=== PATIENT | female | born 1960 | race Hispanic/Latino ===

== ENCOUNTER → 2017-08-04 | Outpatient (CLI) | payer OTHER ==
[~2017-08-04] MED LIST: ACET1TAB25 PO; ATOR10TA69 PO; CLON0.1T PO; CLON1TAB4 PO; ESOM40CA54 PO; FERS325 PO; FLUO40CA49 PO; IBAN150T8 PO; METO10TA3 PO; MIRT15TA6 PO; POTASSIUM CITRATE PO; PREG50 PO; TOPI50TA24 PO
== END ==
LOC: RAH 11:02
PROVIDERS: ATTEND Internal Medicine
DX: N64.4 Mastodynia (principal)
CPT/HCPCS: 77066

== ENCOUNTER 2017-10-07 20:31 | Emergency (ER) | payer OTHER ==
[~2017-10-07 20:31] MED LIST changes: -CLON1TAB4 PO; +CLON1TAB5 PO
[2017-10-07 21:02] LABS: APPEARANCE,URINE Clear (CLEAR); BILIRUBIN,URINE Negative (NEGATIVE); COLOR,URINE Yellow (YELLOW); GLUCOSE, URINE (UA) Negative (NEGATIVE); KETONES,URINE Negative (NEGATIVE); LEUKOCYTE ESTERASE ,URINE Small (NEGATIVE); NITRATE,URINE Negative (NEGATIVE); OCCULT BLOOD,URINE Negative (NEGATIVE); PROTEIN,URINE POS 1+ (NEGATIVE); UROBILINOGEN,URINE 0.2 mg/dL (0.2-1.0)
[2017-10-07 21:04] LABS: BASOPHILS % (AUTO) 0.5 % (0.0-5.0); EOSINOPHILS % (AUTO) 2.1 % (0.0-8.0); HEMATOCRIT 42.8 % (36-48); MEAN CORPUSCULAR HEMOGLOBIN 30.4 pg (27.0-33.0); MEAN CORPUSCULAR HGB CONC 35.3 g/dL (32.0-36.0); MONOCYTES % (AUTO) 7.8 % (3.0-13.0); NEUTROPHILS % (AUTO) 58.6 % (40.0-77.0); PLATELET COUNT (AUTO) 379 K/uL (130-400); RED BLOOD CELL COUNT(AUTO) 4.97 MIL/uL (4.00-5.50); RED CELL DISTRIBUTION WIDTH 15.5 % (11.0-15.5); WHITE BLOOD COUNT (AUTO) 9.6 K/uL (4.8-10.8)
[2017-10-07 21:08] LABS: RBC,URINE 0-1 /HPF (0-1)
[2017-10-07 21:09] LABS: BACTERIA,URINE Few /HPF (None Seen)
[2017-10-07 21:10] LABS: SQUAMOUS EPITHELIAL CELL,UR Moderate /HPF (0-2)
[2017-10-07 21:14] LABS: CREATININE 1.2 mg/dL (0.5-1.5); POTASSIUM 3.1 mmol/L (3.5-5.1)
[2017-10-07 21:20] LABS: ALBUMIN 3.6 g/dL (3.5-5.0); BILIRUBIN,TOTAL 0.2 mg/dL (0.2-1.0); TOTAL PROTEIN, SERUM 7.2 g/dL (6.0-8.3)
== END 2017-10-07 22:11 | disposition home or self-care (01) ==
LOC: EDH 20:31
DX: N23 Unspecified renal colic (principal); I10 Essential (primary) hypertension; M79.7 Fibromyalgia; G43.909 Migraine, unspecified, not intractable, without status migrainosus; E78.5 Hyperlipidemia, unspecified; H40.9 Unspecified glaucoma; M81.0 Age-related osteoporosis without current pathological fracture; Z88.1 Allergy status to other antibiotic agents; Z88.6 Allergy status to analgesic agent; Z87.442 Personal history of urinary calculi; Z90.710 Acquired absence of both cervix and uterus
CPT/HCPCS: 36415; 80053; 81001; 83690; 85025

== ENCOUNTER → 2017-10-22 | Outpatient (CLI) | payer OTHER | END | disposition home or self-care (01) | LOC: RAH 09:17 | PROVIDERS: ATTEND Internal Medicine | DX: R10.13 Epigastric pain (principal); R11.2 Nausea with vomiting, unspecified | CPT/HCPCS: 76700 ==

== ENCOUNTER 2017-11-28 16:13 | Emergency (ER) | payer OTHER ==
[2017-11-28] MEDS ORDERED: DIAZEPAM 5 MG TABLET ONE (16:55)
[2017-11-28] MEDS ORDERED: ACETAMINOPHEN EXTRA STRENGTH 500 MG TABLET ONE (16:55)
[2017-11-28] MEDS ORDERED: LIDOCAINE 5% TOPICAL PATCH TP ONE (16:55)
== END 2017-11-28 18:27 | disposition home or self-care (01) ==
LOC: EDH 16:13
DX: M54.5 Low back pain (principal); G89.29 Other chronic pain; F41.9 Anxiety disorder, unspecified; F32.9 Major depressive disorder, single episode, unspecified; M79.7 Fibromyalgia; E78.5 Hyperlipidemia, unspecified; I10 Essential (primary) hypertension; G43.909 Migraine, unspecified, not intractable, without status migrainosus; M81.0 Age-related osteoporosis without current pathological fracture; H40.9 Unspecified glaucoma; Z90.710 Acquired absence of both cervix and uterus; Z87.442 Personal history of urinary calculi; Z98.890 Other specified postprocedural states

== ENCOUNTER → 2017-12-17 | Outpatient (CLI) | payer OTHER | END | disposition home or self-care (01) | LOC: RAH 14:04 | PROVIDERS: ATTEND Urology | DX: K57.90 Diverticulosis of intestine, part unspecified, without perforation or abscess without bleeding (principal); K42.9 Umbilical hernia without obstruction or gangrene | CPT/HCPCS: 74176 ==

== ENCOUNTER → 2018-02-26 | Outpatient (CLI) | payer OTHER ==
[~2018-02-26] MED LIST changes: +IOPAMIDOL-370 100 ML VIAL IV ONE
== END | disposition home or self-care (01) ==
LOC: OIH 09:56
PROVIDERS: ATTEND Internal Medicine Gastroenterology
DX: R10.84 Generalized abdominal pain (principal); Z98.890 Other specified postprocedural states
CPT/HCPCS: 74178; Q9967

== ENCOUNTER → 2018-11-19 | Outpatient (CLI) | payer OTHER ==
[~2018-11-19] MED LIST changes: +CLON1TAB12 PO; -CLON1TAB5 PO; -IOPAMIDOL-370 100 ML VIAL IV ONE
== END | disposition home or self-care (01) ==
LOC: RAH 10:53
PROVIDERS: ATTEND Internal Medicine
DX: Z12.31 Encounter for screening mammogram for malignant neoplasm of breast (principal)
CPT/HCPCS: 77067

== ENCOUNTER → 2019-07-13 | Outpatient (CLI) | payer OTHER ==
[~2019-07-13] MED LIST changes: +IBAN150T21 PO; -IBAN150T8 PO
== END | disposition home or self-care (01) ==
LOC: RAH 13:02
PROVIDERS: ATTEND Internal Medicine
DX: M19.072 Primary osteoarthritis, left ankle and foot (principal); M19.071 Primary osteoarthritis, right ankle and foot; M19.042 Primary osteoarthritis, left hand; M19.041 Primary osteoarthritis, right hand
CPT/HCPCS: 73130; 73630

== ENCOUNTER → 2019-08-17 | Outpatient (CLI) | payer OTHER | END | disposition home or self-care (01) | LOC: RAH 12:41 | PROVIDERS: ATTEND Internal Medicine | DX: M17.12 Unilateral primary osteoarthritis, left knee (principal); M17.11 Unilateral primary osteoarthritis, right knee | CPT/HCPCS: 73562 ==

== ENCOUNTER → 2019-09-01 | Outpatient (CLI) | payer OTHER | END | disposition home or self-care (01) | LOC: RAH 13:34 | PROVIDERS: ATTEND Urology | DX: N20.0 Calculus of kidney (principal) | CPT/HCPCS: 74176 ==

== ENCOUNTER → 2019-09-23 | Outpatient (CLI) | payer OTHER ==
[2019-09-23 09:47] LABS: BASOPHILS % (AUTO) 0.8 % (0.0-5.0); EOSINOPHILS % (AUTO) 2.6 % (0.0-8.0); HEMATOCRIT 43.1 % (36-48); LYMPHOCYTES % (AUTO) 27.1 % (21.0-51.0); MEAN CORPUSCULAR HEMOGLOBIN 30.9 pg (27.0-33.0); MEAN CORPUSCULAR HGB CONC 33.4 g/dL (32.0-36.0); MEAN CORPUSCULAR VOLUME 92.5 fL (79-99); MONOCYTES % (AUTO) 7.6 % (3.0-13.0); NEUTROPHILS % (AUTO) 61.6 % (40.0-77.0); PLATELET COUNT (AUTO) 350 K/uL (130-400); RED BLOOD CELL COUNT(AUTO) 4.66 MIL/uL (4.00-5.50); RED CELL DISTRIBUTION WIDTH 13.1 % (11.0-15.5); WHITE BLOOD COUNT (AUTO) 7.6 K/uL (4.8-10.8)
[2019-09-23 09:54] LABS: CREATININE 0.9 mg/dL (0.5-1.5); POTASSIUM 3.9 mmol/L (3.5-5.1)
== END | disposition home or self-care (01) ==
LOC: LAB 09:12
PROVIDERS: ATTEND Urology
DX: N20.0 Calculus of kidney (principal)
CPT/HCPCS: 36415; 80048; 85025

== ENCOUNTER → 2019-09-26 | Outpatient (CLI) | payer OTHER ==
[~2019-09-26] MED LIST changes: +IOHEXOL-350 75 ML VIAL IV ONE
== END | disposition home or self-care (01) ==
LOC: RAH 08:08
PROVIDERS: ATTEND Urology
DX: K76.0 Fatty (change of) liver, not elsewhere classified (principal); K57.30 Diverticulosis of large intestine without perforation or abscess without bleeding; N20.0 Calculus of kidney; J98.11 Atelectasis; Z90.710 Acquired absence of both cervix and uterus
CPT/HCPCS: 74178; Q9967

== ENCOUNTER → 2019-11-22 | Outpatient (CLI) | payer OTHER ==
[~2019-11-22] MED LIST changes: -IOHEXOL-350 75 ML VIAL IV ONE
== END | disposition home or self-care (01) ==
LOC: RAH 11:14
PROVIDERS: ATTEND Internal Medicine
DX: Z12.31 Encounter for screening mammogram for malignant neoplasm of breast (principal)
CPT/HCPCS: 77067

== ENCOUNTER → 2020-10-09 | Outpatient (CLI) | payer OTHER | END | disposition home or self-care (01) | LOC: RAH 12:52 | PROVIDERS: ATTEND Urology | DX: N20.0 Calculus of kidney (principal); K57.30 Diverticulosis of large intestine without perforation or abscess without bleeding | CPT/HCPCS: 74176 ==

== ENCOUNTER → 2021-03-19 | Outpatient (CLI) | payer OTHER ==
[~2021-03-19] MED LIST changes: +MIRT-22 PO; -MIRT15TA6 PO
== END | disposition home or self-care (01) ==
LOC: RAH 11:10
PROVIDERS: ATTEND Internal Medicine
DX: E04.2 Nontoxic multinodular goiter (principal)
CPT/HCPCS: 76536

== ENCOUNTER → 2021-03-22 | Outpatient (CLI) | payer OTHER | END | disposition home or self-care (01) | LOC: RAH 14:09 | PROVIDERS: ATTEND Internal Medicine | DX: Z12.31 Encounter for screening mammogram for malignant neoplasm of breast (principal); N20.0 Calculus of kidney | CPT/HCPCS: 74018; 76100; 77067 ==

== ENCOUNTER → 2021-04-24 | Outpatient (CLI) | payer OTHER ==
[~2021-04-24] MED LIST changes: +KETO10 PO; +TAMS-1 PO
[2021-04-24 08:24] LABS: INR 0.96 (0.85-1.15); PROTHROMBIN TIME 10.5 SEC (9.6-11.6)
[2021-04-24 08:25] LABS: PARTIAL THROMBOPLASTIN TIME 29.1 SEC (26.3-35.5)
== END | disposition home or self-care (01) ==
LOC: RAH 07:33
PROVIDERS: ATTEND Internal Medicine
DX: E04.1 Nontoxic single thyroid nodule (principal); M81.0 Age-related osteoporosis without current pathological fracture; F41.9 Anxiety disorder, unspecified; F32.9 Major depressive disorder, single episode, unspecified; I10 Essential (primary) hypertension; E78.5 Hyperlipidemia, unspecified; M79.7 Fibromyalgia; Z90.710 Acquired absence of both cervix and uterus; Z90.49 Acquired absence of other specified parts of digestive tract; Z98.890 Other specified postprocedural states; Z79.01 Long term (current) use of anticoagulants
CPT/HCPCS: 10005; 36415; 76942; 85610; 85730; 88173; 88305

== ENCOUNTER 2021-05-06 14:32 | Emergency (ER) | payer OTHER ==
[~2021-05-06] VITALS: Ht 152.4 cm; Wt 64.0 kg
[~2021-05-06 14:32] MED LIST changes: -KETO10 PO; -TAMS-1 PO
[2021-05-06] MEDS ORDERED: KETOROLAC 30MG VIAL (30MG/ML) IV ONE (16:00)
[2021-05-06] MEDS ORDERED: 0.9%NACL 1000ML 1,000 ML IV ONE (16:00)
[2021-05-06] MEDS ORDERED: ONDANSETRON 4MG INJ IVP ONE (16:00)
[2021-05-06 16:12] LABS: BASOPHILS % (AUTO) 0.5 % (0.0-5.0); EOSINOPHILS % (AUTO) 0.7 % (0.0-8.0); HEMATOCRIT 46.6 % (36-48); LYMPHOCYTES % (AUTO) 13.5 % (21.0-51.0); MEAN CORPUSCULAR HEMOGLOBIN 30.7 pg (27.0-33.0); MEAN CORPUSCULAR VOLUME 92.8 fL (79-99); MONOCYTES % (AUTO) 2.5 % (3.0-13.0); NEUTROPHILS % (AUTO) 82.3 % (40.0-77.0); PLATELET COUNT (AUTO) 318 K/uL (130-400); RED BLOOD CELL COUNT(AUTO) 5.02 MIL/uL (4.00-5.50); RED CELL DISTRIBUTION WIDTH 14.5 % (11.0-15.5); WHITE BLOOD COUNT (AUTO) 8.4 K/uL (4.8-10.8)
[2021-05-06 16:29] LABS: APPEARANCE,URINE Cloudy (CLEAR); BILIRUBIN,URINE Negative (NEGATIVE); COLOR,URINE Yellow (YELLOW); GLUCOSE, URINE (UA) Negative (NEGATIVE); KETONES,URINE Negative (NEGATIVE); LEUKOCYTE ESTERASE ,URINE Negative (NEGATIVE); NITRATE,URINE Negative (NEGATIVE); OCCULT BLOOD,URINE Negative (NEGATIVE); PH,URINE 6.5 (5.0-8.0); PROTEIN,URINE Negative (NEGATIVE)
[2021-05-06 16:32] LABS: CREATININE 0.9 mg/dL (0.5-1.5); POTASSIUM 4.1 mmol/L (3.5-5.1)
[2021-05-06 16:39] LABS: ALBUMIN 4.5 g/dL (3.5-5.0); BILIRUBIN,TOTAL 0.3 mg/dL (0.2-1.0); CRP QUANTITATIVE 2.9 mg/L (0.00-9.0); TOTAL PROTEIN, SERUM 8.8 g/dL (6.0-8.3)
[2021-05-06 16:48] LABS: BACTERIA,URINE Few /HPF (None Seen); RBC,URINE 0-1 /HPF (0-1); SQUAMOUS EPITHELIAL CELL,UR Few /HPF (0-2); WBC,URINE 0-1 /HPF (0-1)
[2021-05-06 16:49] LABS: AMORPHOUS SEDIMENT,UR Few /LPF (None Seen); MUCUS,URINE Few LPF (None Seen)
[2021-05-06] MEDS ORDERED: TAMS-1 PO (17:18)
[2021-05-06] MEDS ORDERED: KETO10 PO (17:18)
[2021-05-06 17:26] VITALS: BP 161/98
[2021-05-06] MEDS ORDERED: TAMSULOSIN HCL 0.4 MG CAP.ER.24H PO SCH (17:30)
== END 2021-05-06 17:34 | disposition home or self-care (01) ==
LOC: EDH 14:32
DX: N20.0 Calculus of kidney (principal); E78.00 Pure hypercholesterolemia, unspecified; I10 Essential (primary) hypertension; M19.90 Unspecified osteoarthritis, unspecified site; Z79.1 Long term (current) use of non-steroidal anti-inflammatories (NSAID); Z79.899 Other long term (current) drug therapy; Z88.1 Allergy status to other antibiotic agents
CPT/HCPCS: 36415; 74176; 80053; 81001; 84484; 85025; 86140; 96361; 96374; 96375; 99284; J1885; J2405; J7030

== ENCOUNTER → 2021-05-20 | Outpatient (CLI) | payer OTHER ==
[~2021-05-20] MED LIST changes: +KETO10 PO; +TAMS-1 PO
[2021-05-20 13:34] LABS: BASOPHILS % (AUTO) 0.7 % (0.0-5.0); HEMATOCRIT 47.5 % (36-48); LYMPHOCYTES % (AUTO) 25.4 % (21.0-51.0); MEAN CORPUSCULAR HEMOGLOBIN 31.4 pg (27.0-33.0); MEAN CORPUSCULAR HGB CONC 32.8 g/dL (32.0-36.0); MEAN CORPUSCULAR VOLUME 95.6 fL (79-99); MONOCYTES % (AUTO) 6.4 % (3.0-13.0); NEUTROPHILS % (AUTO) 66.2 % (40.0-77.0); PLATELET COUNT (AUTO) 382 K/uL (130-400); RED BLOOD CELL COUNT(AUTO) 4.97 MIL/uL (4.00-5.50); RED CELL DISTRIBUTION WIDTH 14.6 % (11.0-15.5); WHITE BLOOD COUNT (AUTO) 10.4 K/uL (4.8-10.8)
[2021-05-20 13:39] LABS: CREATININE 0.9 mg/dL (0.5-1.5); POTASSIUM 3.9 mmol/L (3.5-5.1)
== END | disposition home or self-care (01) ==
LOC: LAB 11:58
PROVIDERS: ATTEND Internal Medicine
DX: N20.0 Calculus of kidney (principal)
CPT/HCPCS: 36415; 80048; 85025

== ENCOUNTER → 2021-05-23 | Outpatient (CLI) | payer OTHER ==
[~2021-05-23] MED LIST changes: +IOHEXOL 350 MG/ML 100ML INFUS..BTL IV ONE
== END | disposition home or self-care (01) ==
LOC: RAH 09:53
PROVIDERS: ATTEND Internal Medicine Cardiovascular Disease
DX: K82.8 Other specified diseases of gallbladder (principal); I77.1 Stricture of artery; I70.8 Atherosclerosis of other arteries; R76.0 Raised antibody titer; M47.815 Spondylosis without myelopathy or radiculopathy, thoracolumbar region
CPT/HCPCS: 74174; Q9967

== ENCOUNTER 2021-05-26 23:57 | Emergency (ER) | payer OTHER ==
[~2021-05-26] VITALS: Ht 152.4 cm; Wt 62.1 kg
[~2021-05-26 23:57] MED LIST changes: -IOHEXOL 350 MG/ML 100ML INFUS..BTL IV ONE
[2021-05-27] MEDS: ORPHENADRINE CITRATE 30 MG/ML ML ONE (00:51)
[2021-05-27] MEDS: KETOROLAC 60 MG VIAL (30MG/ML) ONE (00:51)
[2021-05-27] MEDS: KETOROLAC 60 MG VIAL (30MG/ML) IM ONE (00:56)
[2021-05-27] MEDS: ORPHENADRINE CITRATE 30 MG/ML ML IM ONE (00:56)
[2021-05-27] MEDS ORDERED: ORPH-43 PO (01:14)
[2021-05-27] MEDS ORDERED: LIDOP TP (01:14)
[2021-05-27 01:19] VITALS: BP 127/84
== END 2021-05-27 01:26 | disposition home or self-care (01) ==
LOC: EDH 23:57
DX: M62.830 Muscle spasm of back (principal); E78.5 Hyperlipidemia, unspecified; F41.9 Anxiety disorder, unspecified; M19.90 Unspecified osteoarthritis, unspecified site; F32.A Depression, unspecified; M79.7 Fibromyalgia; Z88.1 Allergy status to other antibiotic agents; Z79.1 Long term (current) use of non-steroidal anti-inflammatories (NSAID); Z79.899 Other long term (current) drug therapy; Z87.442 Personal history of urinary calculi
CPT/HCPCS: 96372 ×2; 99284; J1885; J2360

== ENCOUNTER 2021-06-13 23:52 | Emergency (ER) | payer OTHER ==
[~2021-06-13 23:52] MED LIST changes: +LIDOP TP; +ORPH-43 PO
[2021-06-14 00:36] LABS: APPEARANCE,URINE Clear (CLEAR); BILIRUBIN,URINE Negative (NEGATIVE); COLOR,URINE Yellow (YELLOW); GLUCOSE, URINE (UA) Negative (NEGATIVE); KETONES,URINE Negative (NEGATIVE); LEUKOCYTE ESTERASE ,URINE Negative (NEGATIVE); NITRATE,URINE Negative (NEGATIVE); OCCULT BLOOD,URINE Negative (NEGATIVE); PH,URINE 5.5 (5.0-8.0); PROTEIN,URINE Negative (NEGATIVE)
[2021-06-14] MEDS ORDERED: KETOROLAC 15MG/ML VIAL (15MG/ML) ONE (00:58)
[2021-06-14] MEDS ORDERED: 0.9% NACL 500ML IV.SOLN 500 ML IV ONE (01:00)
[2021-06-14] MEDS ORDERED: KETOROLAC 15MG/ML VIAL (15MG/ML) IV ONE (01:00)
[2021-06-14 01:05] LABS: BASOPHILS % (AUTO) 0.8 % (0.0-5.0); EOSINOPHILS % (AUTO) 1.9 % (0.0-8.0); HEMATOCRIT 40.2 % (36-48); LYMPHOCYTES % (AUTO) 33.3 % (21.0-51.0); MEAN CORPUSCULAR HEMOGLOBIN 31.4 pg (27.0-33.0); MEAN CORPUSCULAR HGB CONC 33.1 g/dL (32.0-36.0); MEAN CORPUSCULAR VOLUME 94.8 fL (79-99); MONOCYTES % (AUTO) 9.4 % (3.0-13.0); PLATELET COUNT (AUTO) 262 K/uL (130-400); RED BLOOD CELL COUNT(AUTO) 4.24 MIL/uL (4.00-5.50); RED CELL DISTRIBUTION WIDTH 14.2 % (11.0-15.5)
[2021-06-14 01:13] LABS: CREATININE 0.9 mg/dL (0.5-1.5); POTASSIUM 3.5 mmol/L (3.5-5.1)
[2021-06-14 01:17] LABS: ALBUMIN 3.8 g/dL (3.5-5.0); BILIRUBIN,TOTAL 0.2 mg/dL (0.2-1.0); TOTAL PROTEIN, SERUM 6.9 g/dL (6.0-8.3)
[2021-06-14] MEDS ORDERED: KETO10TA2 PO (01:46)
[2021-06-14 01:57] VITALS: BP 128/76
== END 2021-06-14 01:58 | disposition home or self-care (01) ==
LOC: EDH 23:52
DX: R10.9 Unspecified abdominal pain (principal); G89.29 Other chronic pain; E78.00 Pure hypercholesterolemia, unspecified; E86.0 Dehydration; F32.A Depression, unspecified; F41.9 Anxiety disorder, unspecified; I10 Essential (primary) hypertension; M79.7 Fibromyalgia; Z79.1 Long term (current) use of non-steroidal anti-inflammatories (NSAID); Z79.899 Other long term (current) drug therapy; Z88.1 Allergy status to other antibiotic agents
CPT/HCPCS: 36415; 80053; 81003; 85025; 96360; 96361; 96372; 96374; J1885; J7040

== ENCOUNTER → 2021-06-19 | Outpatient (CLI) | payer OTHER ==
[~2021-06-19] MED LIST changes: +FUROSEMIDE 20MG VIAL ONE; +KETO10TA2 PO
== END | disposition home or self-care (01) ==
LOC: RAH 13:40
PROVIDERS: ATTEND Urology
DX: R10.84 Generalized abdominal pain (principal)
CPT/HCPCS: 78708; A9562; J1940

== ENCOUNTER → 2021-07-05 | Outpatient (CLI) | payer OTHER ==
[~2021-07-05] MED LIST changes: -FUROSEMIDE 20MG VIAL ONE; +REGADENOSON 0.4 MG/5 ML PF SYG IVP SCH
== END | disposition home or self-care (01) ==
LOC: SHCH 09:12
PROVIDERS: ATTEND Internal Medicine Cardiovascular Disease
DX: I70.1 Atherosclerosis of renal artery (principal); I10 Essential (primary) hypertension; I25.10 Atherosclerotic heart disease of native coronary artery without angina pectoris; E78.5 Hyperlipidemia, unspecified; E78.00 Pure hypercholesterolemia, unspecified; M19.90 Unspecified osteoarthritis, unspecified site; F41.9 Anxiety disorder, unspecified; F32.A Depression, unspecified; Z79.1 Long term (current) use of non-steroidal anti-inflammatories (NSAID); Z79.899 Other long term (current) drug therapy
CPT/HCPCS: 78452; 93017; 96374; A9500 ×2; J2785

== ENCOUNTER 2021-12-31 06:05 | Day surgery (SDC) | payer OTHER ==
[2021-12-26 09:14] LABS: BASOPHILS % (AUTO) 0.9 % (0.0-5.0); EOSINOPHILS % (AUTO) 2.9 % (0.0-8.0); HEMATOCRIT 39.9 % (36-48); MEAN CORPUSCULAR HEMOGLOBIN 30.9 pg (27.0-33.0); MEAN CORPUSCULAR HGB CONC 33.1 g/dL (32.0-36.0); MEAN CORPUSCULAR VOLUME 93.4 fL (79-99); NEUTROPHILS % (AUTO) 46.7 % (40.0-77.0); PLATELET COUNT (AUTO) 380 K/uL (130-400); RED BLOOD CELL COUNT(AUTO) 4.27 MIL/uL (4.00-5.50); RED CELL DISTRIBUTION WIDTH 13.2 % (11.0-15.5); WHITE BLOOD COUNT (AUTO) 6.5 K/uL (4.8-10.8)
[2021-12-26 09:22] LABS: CREATININE 0.9 mg/dL (0.5-1.5); POTASSIUM 3.8 mmol/L (3.5-5.1)
[2021-12-26 09:38] LABS: INR 0.93 (0.85-1.15)
[2021-12-26 09:40] LABS: PARTIAL THROMBOPLASTIN TIME 27.6 SEC (26.3-35.5)
[2021-12-26 09:59] LABS: B-TYPE NATRIURETIC PEPTIDE 6 pg/mL (0-100)
[2021-12-26 10:00] LABS: APPEARANCE,URINE Clear (CLEAR); BILIRUBIN,URINE Negative (NEGATIVE); COLOR,URINE Yellow (YELLOW); GLUCOSE, URINE (UA) Negative (NEGATIVE); KETONES,URINE Negative (NEGATIVE); LEUKOCYTE ESTERASE ,URINE Negative (NEGATIVE); NITRATE,URINE Negative (NEGATIVE); OCCULT BLOOD,URINE Negative (NEGATIVE); PROTEIN,URINE Negative (NEGATIVE); UROBILINOGEN,URINE 0.2 mg/dL (0.2-1.0)
[2021-12-26 15:04] VITALS: BP 139/94
[2021-12-31] VITALS (12 sets, daily range): BP systolic 91–125; BP diastolic 53–78
[~2021-12-31] VITALS: Ht 154.9 cm; Wt 58.2 kg
[~2021-12-31 06:05] MED LIST changes: +0.9% NACL 500ML IV.SOLN 500 ML IV SCH; -ACET1TAB25 PO; +AEC81 PO; -ATOR10TA69 PO; +ATOR40TA71 PO; +BREX1TAB PO; +BUSP5TAB3 PO; +CELE200C PO; +CHOL500050 PO; -CLON0.1T PO; -CLON1TAB12 PO; +DIAZ5TAB4 PO; +ELUX100T PO; +ESOM20CA39 PO; -ESOM40CA54 PO; -FERS325 PO; -FLUO40CA49 PO; +FLUO40CA7 PO; +GABA-529 PO; -IBAN150T21 PO; -KETO10 PO; -KETO10TA2 PO; +LATA7.5D OP; +LEVO88CA4 PO; -LIDOP TP; +METO-391 PO; -METO10TA3 PO; +MIRA50TA PO; -MIRT-22 PO; -ORPH-43 PO; -POTASSIUM CITRATE PO; -PREG50 PO; -REGADENOSON 0.4 MG/5 ML PF SYG IVP SCH; +SUCR1TAB2 PO; -TAMS-1 PO; +TIZA4CAP8 PO; +TOPI100T31 PO; -TOPI50TA24 PO; +TRAM-355 PO
[2021-12-31] MEDS ORDERED: 0.9%NACL 1000ML 1,000 ML IV ONE (06:25)
[2021-12-31] MEDS ORDERED: SODIUM BICARB 50MEQ 50ML VIAL 50 ML ONE (07:16)
[2021-12-31] MEDS ORDERED: IOHEXOL 350 MG/ML 100ML INFUS..BTL IV ONE (07:16)
[2021-12-31] MEDS ORDERED: LIDOCAINE HCL 400MG/20ML VIAL ONE (07:17)
[2021-12-31] MEDS ORDERED: MEPERIDINE-PF 25 MG/ML SYG ONE (07:17)
[2021-12-31] MEDS ORDERED: MIDAZOLAM HCL 1 MG/ML 2ML VIAL ONE (07:17)
[2021-12-31] MEDS ORDERED: ATROPINE 1MG SYG IVP ONE (07:38)
[2021-12-31] MEDS ORDERED: NITROGLYCERIN 50MG VIAL ONE (07:54)
[2021-12-31] MEDS ORDERED: 0.9%NACL 1000ML 1,000 ML IV SCH ×2 (08:00→09:00)
[2021-12-31] MEDS ORDERED: HEPARIN 10,000 UNIT/10ML (1,000 UNIT/ML) VIAL ONE (08:03)
[2021-12-31] MEDS ORDERED: ASPIRIN 325MG EC TAB PO ONE (08:16)
[2021-12-31] MEDS ORDERED: CLOPIDOGREL 300MG TAB ONE (08:16)
[2021-12-31] MEDS ORDERED: CLOP75TA14 PO (11:19)
[2021-12-31] MEDS ORDERED: PANT40TA PO (11:19)
[2021-12-31] MEDS ORDERED: AMLO2.5T4 PO (11:20)
[2021-12-31] MEDS ORDERED: METO25TA3 PO (11:21)
== END 2021-12-31 13:15 | disposition home or self-care (01) ==
LOC: DAH 06:05
PROVIDERS: ATTEND Internal Medicine Cardiovascular Disease
DX: I25.111 Atherosclerotic heart disease of native coronary artery with angina pectoris with documented spasm (principal); I16.1 Hypertensive emergency; I70.1 Atherosclerosis of renal artery; I15.0 Renovascular hypertension; K21.9 Gastro-esophageal reflux disease without esophagitis; Z79.01 Long term (current) use of anticoagulants; Z79.899 Other long term (current) drug therapy; Z79.82 Long term (current) use of aspirin; Z79.890 Hormone replacement therapy; Z98.890 Other specified postprocedural states
CPT/HCPCS: 80048; 83880; 85025; 85610; 85730; 81003; 36415; 71045; 93005; 37236; 93458; 36252; C1769 ×2; C1894 ×2; C1760; C1887; C1876; Q9965; J3490 ×3; J7030; J0461; J1644 ×2; J2250; J2175; Q9967; 99156; 99157

== ENCOUNTER → 2022-07-09 | Outpatient (CLI) | payer OTHER ==
[~2022-07-09] MED LIST changes: -0.9% NACL 500ML IV.SOLN 500 ML IV SCH; +AMLO2.5T4 PO; +CLOP-31 PO; -ESOM20CA39 PO; -METO-391 PO; +METO25TA3 PO; +PANT40TA PO
== END | disposition home or self-care (01) ==
LOC: RAH 10:53
PROVIDERS: ATTEND Internal Medicine
DX: Z12.31 Encounter for screening mammogram for malignant neoplasm of breast (principal)
CPT/HCPCS: 77067

== ENCOUNTER → 2022-07-29 | Outpatient (CLI) | payer OTHER | END | disposition home or self-care (01) | LOC: RAH 16:43 | PROVIDERS: ATTEND Internal Medicine | DX: M79.672 Pain in left foot (principal); M54.50 Low back pain, unspecified; M54.16 Radiculopathy, lumbar region | CPT/HCPCS: 72100; 73630 ==

== ENCOUNTER 2023-02-20 12:12 | Emergency (ER) | payer OTHER ==
[~2023-02-20] VITALS: Ht 154.9 cm; Wt 58.1 kg
[~2023-02-20 12:12] MED LIST changes: -NEOM28.36 TP
[2023-02-20 12:33] VITALS: BP 176/88; PULSE 115; RESP 16; O2SAT 98
[2023-02-20] MEDS ORDERED: NEOM28.36 TP (14:07)
[2023-03-01] MEDS ORDERED: TOPI100T37 PO (23:46)
[2023-03-01] MEDS ORDERED: LOSA25TA41 PO (23:46)
[2023-03-01] MEDS ORDERED: GABA-529 (23:46)
[2023-03-01] MEDS ORDERED: FENO145T26 PO (23:46)
[2023-03-01] MEDS ORDERED: PANT40TA54 PO (23:46)
[2023-03-01] MEDS ORDERED: TIZA-194 PO (23:46)
[2023-03-01] MEDS ORDERED: BUSP10TA3 PO (23:46)
[2023-03-01] MEDS ORDERED: TEMA15CA PO (23:46)
[2023-03-01] MEDS ORDERED: CELE-84 PO (23:46)
[2023-03-01] MEDS ORDERED: TIZA-211 PO (23:46)
[2023-03-01] MEDS ORDERED: RANO500T6 PO (23:46)
[2023-03-01] MEDS ORDERED: METO-409 PO (23:46)
[2023-03-01] MEDS ORDERED: NITR0.4T50 SL (23:46)
[2023-03-01] MEDS ORDERED: AMLO-258 PO (23:46)
[2023-03-01] MEDS ORDERED: FLUO40CA49 PO (23:46)
[2023-03-01] MEDS ORDERED: DICL75TA5 PO (23:46)
[2023-03-01] MEDS ORDERED: TRAM-355 PO (23:47)
[2023-03-01] MEDS ORDERED: DOCU100T9 PO (23:53)
[2023-03-01] MEDS ORDERED: DIAZ10I IJ (23:53)
[2023-03-01] MEDS ORDERED: MIRA50TA PO (23:53)
[2023-03-01] MEDS ORDERED: ELUX100T PO (23:53)
[2023-03-01] MEDS ORDERED: NITR100C9 PO (23:53)
[2023-03-01] MEDS ORDERED: DICY20TA3 PO (23:53)
[2023-03-01] MEDS ORDERED: BREX1TAB PO (23:53)
== END 2023-02-20 14:31 | disposition home or self-care (01) ==
LOC: EDH 12:12
DX: S80.02XA Contusion of left knee, initial encounter (principal); S80.01XA Contusion of right knee, initial encounter; E78.00 Pure hypercholesterolemia, unspecified; I10 Essential (primary) hypertension; Z79.02 Long term (current) use of antithrombotics/antiplatelets; Z79.1 Long term (current) use of non-steroidal anti-inflammatories (NSAID); Z79.82 Long term (current) use of aspirin; Z79.890 Hormone replacement therapy; Z79.899 Other long term (current) drug therapy; Z88.1 Allergy status to other antibiotic agents; W01.0XXA Fall on same level from slipping, tripping and stumbling without subsequent striking against object, initial encounter; Y93.89 Activity, other specified; Y92.89 Other specified places as the place of occurrence of the external cause; Y99.8 Other external cause status
CPT/HCPCS: 71046

== ENCOUNTER → 2023-02-20 | Outpatient (CLI) | payer OTHER ==
[~2023-02-20] MED LIST changes: +NEOM28.36 TP
== END | disposition home or self-care (01) ==
LOC: RAH 11:28
PROVIDERS: ATTEND Internal Medicine
DX: Z01.818 Encounter for other preprocedural examination (principal)
CPT/HCPCS: 71046

== ENCOUNTER 2023-03-31 05:48 | Day surgery (SDC) | payer OTHER ==
[2023-03-30 14:27] VITALS: BP 149/97; PULSE 92; RESP 18
[2023-03-31] VITALS (9 sets, daily range): BP systolic 127–152; BP diastolic 77–97; PULSE 78–87; RESP 14–16
[~2023-03-31] VITALS: Ht 154.9 cm; Wt 55.2 kg
[~2023-03-31 05:48] MED LIST changes: +AMLO-258 PO; -AMLO2.5T4 PO; +ATOR40TA69 PO; -ATOR40TA71 PO; +BUSP10TA3 PO; -BUSP5TAB3 PO; +CELE-125 PO; -CELE200C PO; -CHOL500050 PO; -CLOP-31 PO; +DICL75TA5 PO; +DICY20TA3 PO; +DIPH1TAB PO; +FENO145T26 PO; +FLUO40CA49 PO; -FLUO40CA7 PO; +GABA-529; -GABA-529 PO; +LATA2.5D14 OP; -LATA7.5D OP; +METO-409 PO; -METO25TA3 PO; +METO5 PO; -MIRA50TA PO; +NITR0.4T50 SL; -PANT40TA PO; +PANT40TA54 PO; +RANO500T6 PO; +TEMA15CA PO; +TIZA-211 PO; -TIZA4CAP8 PO; -TOPI100T31 PO; +TOPI100T37 PO
[2023-03-31] MEDS ORDERED: LIDOCAINE PF 100MG/5ML (2%) SYRINGE 5ML ONE (07:52)
[2023-03-31] MEDS ORDERED: PROPOFOL 10 MG/ML 20ML VIAL IV ONE ×2 (07:52→08:05)
== END 2023-03-31 09:10 | disposition home or self-care (01) ==
LOC: ENDO 05:48 → DAH 05:48 → ENDO 09:10
PROVIDERS: ATTEND Internal Medicine
DX: R93.5 Abnormal findings on diagnostic imaging of other abdominal regions, including retroperitoneum (principal); R93.2 Abnormal findings on diagnostic imaging of liver and biliary tract; K86.2 Cyst of pancreas; K29.70 Gastritis, unspecified, without bleeding; R10.9 Unspecified abdominal pain; K57.30 Diverticulosis of large intestine without perforation or abscess without bleeding; K64.9 Unspecified hemorrhoids; K44.9 Diaphragmatic hernia without obstruction or gangrene; K58.0 Irritable bowel syndrome with diarrhea; I10 Essential (primary) hypertension; K21.9 Gastro-esophageal reflux disease without esophagitis; F41.9 Anxiety disorder, unspecified; F32.A Depression, unspecified; M81.0 Age-related osteoporosis without current pathological fracture; E78.5 Hyperlipidemia, unspecified; M19.90 Unspecified osteoarthritis, unspecified site; Z86.010 Personal history of colon polyps; Z90.710 Acquired absence of both cervix and uterus; Z98.890 Other specified postprocedural states; Z72.89 Other problems related to lifestyle
CPT/HCPCS: 43237; 43239; J2001; J2704 ×2; A4620; A4215 ×2; A4223; A7002; A4222; A4221; A4663; A4216; J7030; A4606; J3490

== ENCOUNTER → 2023-04-16 | Outpatient (CLI) | payer OTHER | END | disposition home or self-care (01) | LOC: RAH 06:30 | PROVIDERS: ATTEND Internal Medicine Gastroenterology | DX: R10.9 Unspecified abdominal pain (principal); R11.0 Nausea | CPT/HCPCS: 78264; A9541 ==

== ENCOUNTER 2023-05-30 19:59 | Emergency (ER) | payer OTHER ==
[~2023-05-30] VITALS: Ht 154.9 cm; Wt 54.4 kg
[2023-05-30 20:49] LABS: BASOPHILS # (AUTO) 0.07 K/uL (0.00-0.20); BASOPHILS % (AUTO) 0.4 % (0.0-5.0); EOSINOPHILS # (AUTO) 0.06 K/uL (0.00-0.70); EOSINOPHILS % (AUTO) 0.3 % (0.0-8.0); HEMATOCRIT 43.9 % (36-48); IMMATURE GRANULOCYTE ABSOLUTE 0.22 K/uL (0-1); LYMPHOCYTES # (AUTO) 3.7 K/uL (1.0-4.8); LYMPHOCYTES % (AUTO) 18.9 % (21.0-51.0); MEAN CORPUSCULAR HEMOGLOBIN 30.8 pg (27.0-33.0); MEAN CORPUSCULAR HGB CONC 33.3 g/dL (32.0-36.0); MEAN CORPUSCULAR VOLUME 92.6 fL (79-99); MONOCYTES # (AUTO) 1.8 K/uL (0.1-1.0); NEUTROPHILS # (AUTO) 13.9 K/uL (1.8-7.7); NEUTROPHILS % (AUTO) 70.3 % (40.0-77.0); PLATELET COUNT (AUTO) 512 K/uL (130-400); RED BLOOD CELL COUNT(AUTO) 4.74 MIL/uL (4.00-5.50); RED CELL DISTRIBUTION WIDTH 15.9 % (11.0-15.5); WHITE BLOOD COUNT (AUTO) 19.7 K/uL (4.8-10.8)
[2023-05-30] MEDS ORDERED: HALOPERIDOL INJ 5 MG/ML VIAL IV SCH ×3 (21:00→21:30)
[2023-05-30 21:02] LABS: SARS-CoV-2, RNA, NAAT NEGATIVE SARS CoV-2 (NEGATIVE)
[2023-05-30 21:07] LABS: ALBUMIN 4.4 g/dL (3.5-5.0); BILIRUBIN,TOTAL 0.3 mg/dL (0.2-1.0); CREATININE 1.1 mg/dL (0.5-1.5); INFLUENZA TYPE A Negative For Type A (NEGATIVE); INFLUENZA TYPE B Negative For Type B (NEGATIVE); POTASSIUM 3.1 mmol/L (3.5-5.1); TOTAL PROTEIN, SERUM 8.8 g/dL (6.0-8.3)
[2023-05-30] MEDS ORDERED: HALOPERIDOL INJ 5 MG/ML VIAL ONE (21:27)
[2023-05-30] MEDS ORDERED: KCL 20 MEQ ERTAB PO ONE (22:00)
[2023-05-30] MEDS ORDERED: KETOROLAC 15MG/ML VIAL (15MG/ML) IV ONE (22:00)
[2023-05-30] MEDS ORDERED: MORPHINE 4 MG SYG IVP ONE (22:30)
[2023-05-30] MEDS ORDERED: ONDA-104 PO (22:33)
[2023-05-30] MEDS ORDERED: DICY20TA2 PO (22:33)
[2023-05-30 23:10] VITALS: BP 141/70; PULSE 84; RESP 18; O2SAT 97
== END 2023-05-30 23:23 | disposition home or self-care (01) ==
LOC: EDH 19:59
DX: K31.84 Gastroparesis (principal); I10 Essential (primary) hypertension; E78.00 Pure hypercholesterolemia, unspecified; Z20.822 Contact with and (suspected) exposure to COVID-19; Z79.82 Long term (current) use of aspirin; Z79.84 Long term (current) use of oral hypoglycemic drugs; Z79.899 Other long term (current) drug therapy; Z98.890 Other specified postprocedural states; Z90.89 Acquired absence of other organs; Z90.710 Acquired absence of both cervix and uterus; Z88.8 Allergy status to other drugs, medicaments and biological substances
CPT/HCPCS: 99284; 96374; 96375; 87635; 82550; 84484; 80053; 83690; 85025; 87804 ×2; 36415; 96376; 93005; C9803; J1630; J2270; J1885

== ENCOUNTER → 2023-07-10 | Outpatient (CLI) | payer OTHER ==
[~2023-07-10] MED LIST changes: +DICY20TA2 PO; +ONDA-104 PO
== END | disposition home or self-care (01) ==
LOC: RAH 08:13
PROVIDERS: ATTEND Internal Medicine
DX: Z12.31 Encounter for screening mammogram for malignant neoplasm of breast (principal)
CPT/HCPCS: 77067

== ENCOUNTER → 2023-07-16 | Outpatient (CLI) | payer OTHER ==
[2023-07-16 13:59] LABS: BASOPHILS # (AUTO) 0.05 K/uL (0.00-0.20); BASOPHILS % (AUTO) 0.6 % (0.0-5.0); EOSINOPHILS # (AUTO) 0.06 K/uL (0.00-0.70); EOSINOPHILS % (AUTO) 0.7 % (0.0-8.0); HEMATOCRIT 40.2 % (36-48); IMMATURE GRANULOCYTE ABSOLUTE 0.09 K/uL (0-1); LYMPHOCYTES # (AUTO) 1.5 K/uL (1.0-4.8); LYMPHOCYTES % (AUTO) 17.8 % (21.0-51.0); MEAN CORPUSCULAR HEMOGLOBIN 32.1 pg (27.0-33.0); MEAN CORPUSCULAR HGB CONC 33.6 g/dL (32.0-36.0); MEAN CORPUSCULAR VOLUME 95.7 fL (79-99); MONOCYTES # (AUTO) 0.5 K/uL (0.1-1.0); MONOCYTES % (AUTO) 6.4 % (3.0-13.0); NEUTROPHILS # (AUTO) 6.1 K/uL (1.8-7.7); NEUTROPHILS % (AUTO) 73.4 % (40.0-77.0); PLATELET COUNT (AUTO) 375 K/uL (130-400); RED CELL DISTRIBUTION WIDTH 19.1 % (11.0-15.5); WHITE BLOOD COUNT (AUTO) 8.3 K/uL (4.8-10.8)
[2023-07-16 14:30] LABS: ALBUMIN 3.7 g/dL (3.5-5.0); BILIRUBIN,TOTAL 0.3 mg/dL (0.2-1.0); CREATININE 1.2 mg/dL (0.5-1.5); POTASSIUM 3.4 mmol/L (3.5-5.1); THYROID STIMULATING HORMONE 15.76 uIU/mL (0.36-3.74); TOTAL PROTEIN, SERUM 6.7 g/dL (6.0-8.3)
== END | disposition home or self-care (01) ==
LOC: LAB 13:28
PROVIDERS: ATTEND Internal Medicine
DX: E55.9 Vitamin D deficiency, unspecified (principal); E78.5 Hyperlipidemia, unspecified; I95.9 Hypotension, unspecified
CPT/HCPCS: 36415; 80053; 80061; 82306; 84443; 85025

== ENCOUNTER 2023-07-26 01:12 | Observation (INO) | payer OTHER ==
[~2023-07-26] VITALS: Ht 154.9 cm; Wt 50.0 kg
[2023-07-26 01:40] LABS: SARS-CoV-2, RNA, NAAT NEGATIVE SARS CoV-2 (NEGATIVE)
[2023-07-26 01:46] LABS: INFLUENZA TYPE A Negative For Type A (NEGATIVE); INFLUENZA TYPE B Negative For Type B (NEGATIVE)
[2023-07-26 01:54] LABS: BASOPHILS # (AUTO) 0.04 K/uL (0.00-0.20); BASOPHILS % (AUTO) 0.3 % (0.0-5.0); HEMATOCRIT 44.1 % (36-48); IMMATURE GRANULOCYTE ABSOLUTE 0.17 K/uL (0-1); LYMPHOCYTES # (AUTO) 1.7 K/uL (1.0-4.8); MEAN CORPUSCULAR HEMOGLOBIN 32.8 pg (27.0-33.0); MEAN CORPUSCULAR VOLUME 96.3 fL (79-99); MONOCYTES # (AUTO) 1.3 K/uL (0.1-1.0); MONOCYTES % (AUTO) 8.3 % (3.0-13.0); NEUTROPHILS # (AUTO) 11.9 K/uL (1.8-7.7); NEUTROPHILS % (AUTO) 79.3 % (40.0-77.0); PLATELET COUNT (AUTO) 490 K/uL (130-400); RED BLOOD CELL COUNT(AUTO) 4.58 MIL/uL (4.00-5.50); RED CELL DISTRIBUTION WIDTH 21.2 % (11.0-15.5)
[2023-07-26] MEDS: LACTATED RINGERS 1000ML 1,000 ML IV ONE (02:12)
[2023-07-26] MEDS: METOCLOPRAMIDE 10 MG/2 ML VIAL IVP ONE (02:12)
[2023-07-26] MEDS: FAMOTIDINE 20MG VIAL IV ONE (02:12)
[2023-07-26] MEDS: MORPHINE 4 MG SYG IVP ONE ×2 (02:13→03:38)
[2023-07-26 02:24] LABS: CARBON DIOXIDE 27 mmol/L (21-32); CHLORIDE 98 mmol/L (101-111); GLOMERULAR FILTR. RATE CALC 64 mL/min (>90); GLUCOSE,RANDOM 171 mg/dL (70-105); POTASSIUM 3.6 mmol/L (3.5-5.1); SODIUM SERUM 142 mmol/L (136-145); UREA NITROGEN, BLOOD 13 mg/dL (7-18)
[2023-07-26 02:30] LABS: ALANINE AMINOTRANSFERASE 205 U/L (12-78); ALBUMIN 4.2 g/dL (3.5-5.0); ASPARTATE AMINOTRANSFERASE 119 U/L (10-37); BILIRUBIN,DIRECT 0.1 mg/dL (0.0-0.3); BILIRUBIN,TOTAL 0.5 mg/dL (0.2-1.0); CREATINE KINASE, TOTAL 86 U/L (21-232); TOTAL PROTEIN, SERUM 7.9 g/dL (6.0-8.3)
[2023-07-26 02:32] LABS: ALCOHOL, BLOOD < 3 mg/dL (0-10)
[2023-07-26] MEDS: HYDRALAZINE 20MG/ML VIAL IV ONE (02:46)
[2023-07-26] MEDS ORDERED: IOHEXOL-350 75 ML VIAL IV ONE (02:47)
[2023-07-26] MEDS: ONDANSETRON 4MG INJ IVP ONE (03:38)
[2023-07-26] MEDS: METOPROLOL TARTRATE 1 MG/ML 5ML VIAL IV ONE (04:27)
[2023-07-26] MEDS: PROMETHAZINE HCL 25 MG/ML 1ML AMPULE IM ONE (04:39)
[2023-07-26 08:13] LABS: APPEARANCE,URINE CLEAR (CLEAR); BILIRUBIN,URINE NEGATIVE (NEGATIVE); COLOR,URINE LIGHT-YELLOW (YELLOW); GLUCOSE, URINE (UA) 30 mg/dL (NEGATIVE); KETONES,URINE 10 mg/dL (NEGATIVE); LEUKOCYTE ESTERASE ,URINE NEGATIVE Leu/uL (NEGATIVE); NITRATE,URINE NEGATIVE (NEGATIVE); OCCULT BLOOD,URINE NEGATIVE (NEGATIVE); PROTEIN,URINE 30 mg/dL (NEGATIVE); UROBILINOGEN,URINE 0.2 mg/dL (0.2-1.0)
[2023-07-26] MEDS: BISACODYL 10 MG SUPP.RECT RC ONE (08:14)
[2023-07-26] MEDS: ZOSYN 3.375GM +NS 50ML IVPB ONE (08:14)
[2023-07-26 08:17] LABS: ADD UA MICROSCOPIC YES
[2023-07-26 08:19] LABS: AMPHET/METH SCREEN,URINE NEGATIVE (NEGATIVE); BARBITURATE SCREEN, URINE NEGATIVE (NEGATIVE); BENZODIAZEPINES SCREEN,URINE POSITIVE (NEGATIVE); CANNABINOID SCREEN,URINE NEGATIVE (NEGATIVE); COCAINE SCREEN,URINE NEGATIVE (NEGATIVE); OPIATE SCREEN,URINE POSITIVE (NEGATIVE); PHENCYCLIDINE SCREEN,URINE NEGATIVE (NEGATIVE)
[2023-07-26 08:21] LABS: BACTERIA,URINE RARE /HPF (None Seen); MUCUS,URINE RARE LPF (None Seen); SQUAMOUS EPITHELIAL CELL,UR FEW /HPF (0-2)
[2023-07-26] MEDS ORDERED: MAGNESIUM 2GM PREMIX 50ML 50 ML IV PRN (10:00)
[2023-07-26] MEDS ORDERED: DIPHENHYDRAMINE HCL 25 MG CAPSULE PO PRN (10:00)
[2023-07-26] MEDS ORDERED: HYDROMORPHONE 0.5 MG SYG (0.5MG/0.5ML) IV PRN (10:00)
[2023-07-26] MEDS ORDERED: NITROGLYCERIN 0.4 MG SL TAB SL PRN (10:00)
[2023-07-26] MEDS ORDERED: DiphenhydrAMINE HCL 50 MG/ML VIAL IV PRN (10:00)
[2023-07-26] MEDS ORDERED: LACTULOSE 20 GM/30 ML UDCUP PO PRN (10:00)
[2023-07-26] MEDS ORDERED: MAG/ALUM/SIMETH 30 ML UDCUP PO PRN (10:00)
[2023-07-26] MEDS ORDERED: GUAIFENESIN-DM 200/20 MG 10 ML PO PRN (10:00)
[2023-07-26] MEDS ORDERED: ACETAMINOPHEN 325 MG TAB PO PRN ×2 (10:00)
[2023-07-26] MEDS: HYDROCODONE/ACETAMINOPHEN 5/325 MG TAB PO PRN ×2 (11:49→23:51)
[2023-07-26] MEDS: LACTATED RINGERS 1000ML 1,000 ML IV SCH (11:57)
[2023-07-26] MEDS: ONDANSETRON 4MG INJ IV PRN (12:26)
[2023-07-26] MEDS ORDERED: ZOSYN 3.375GM+NS 50ML 50 ML IV SCH (13:00)
[2023-07-26] MEDS ORDERED: METO-409 PO (16:43)
[2023-07-26] MEDS ORDERED: LEVO100C4 PO (16:43)
[2023-07-26] MEDS ORDERED: LOSA25TA41 PO (16:43)
[2023-07-26] MEDS ORDERED: TOPI100T37 PO (16:43)
[2023-07-26] MEDS ORDERED: MIRA50TA PO (16:43)
[2023-07-26] MEDS ORDERED: DOCU-280 PO (16:43)
[2023-07-26] MEDS ORDERED: MIRT-22 PO (16:43)
[2023-07-26] MEDS ORDERED: DIAZ5TAB4 PO (16:43)
[2023-07-26] MEDS ORDERED: CLON0.1T PO (16:43)
[2023-07-26] MEDS ORDERED: GABA-529 PO (16:43)
[2023-07-26] MEDS ORDERED: TRAM-355 PO (16:43)
[2023-07-26] MEDS: ZOSYN 3.375GM+NS 50ML 50 ML IV SCH (18:26)
[2023-07-26] MEDS: POTASSIUM CHLORIDE 10% ELIXIR 20 MEQ/15 ML UDCUP PO PRN (20:07)
[2023-07-26] MEDS: LOSARTAN 50 MG TABLET PO SCH (20:07)
[2023-07-26] MEDS: FAMOTIDINE 20MG VIAL IV PRN (20:07)
[2023-07-26] MEDS: FAMOTIDINE 20MG TAB PO SCH (20:08)
[2023-07-26] MEDS ORDERED: LABETALOL 20MG VIAL IV PRN (21:30)
[2023-07-26] MEDS: LABETALOL 20MG VIAL IV PRN (22:09)
[2023-07-26 23:54] VITALS: BP 177/115; PULSE 98; RESP 19
[2023-07-27] VITALS (7 sets, daily range): BP systolic 129–172; BP diastolic 76–108; PULSE 106–117; RESP 18; O2SAT 96
[2023-07-27] MEDS: HYDRALAZINE 20MG/ML VIAL ONE (00:26)
[2023-07-27] MEDS ORDERED: LABETALOL 20MG VIAL IV PRN (00:30)
[2023-07-27 06:41] LABS: BASOPHILS # (AUTO) 0.03 K/uL (0.00-0.20); BASOPHILS % (AUTO) 0.2 % (0.0-5.0); HEMATOCRIT 43.8 % (36-48); IMMATURE GRANULOCYTE ABSOLUTE 0.13 K/uL (0-1); LYMPHOCYTES # (AUTO) 1.2 K/uL (1.0-4.8); LYMPHOCYTES % (AUTO) 9.4 % (21.0-51.0); MEAN CORPUSCULAR HEMOGLOBIN 32.4 pg (27.0-33.0); MEAN CORPUSCULAR HGB CONC 33.1 g/dL (32.0-36.0); MEAN CORPUSCULAR VOLUME 97.8 fL (79-99); MONOCYTES # (AUTO) 1.1 K/uL (0.1-1.0); MONOCYTES % (AUTO) 8.5 % (3.0-13.0); NEUTROPHILS % (AUTO) 80.9 % (40.0-77.0); NUCLEATED RED BLOOD CELLS 0.2 % (0.0-0.19); PLATELET COUNT (AUTO) 446 K/uL (130-400); RED BLOOD CELL COUNT(AUTO) 4.48 MIL/uL (4.00-5.50); RED CELL DISTRIBUTION WIDTH 21.3 % (11.0-15.5); WHITE BLOOD COUNT (AUTO) 12.4 K/uL (4.8-10.8)
[2023-07-27 07:00] LABS: ALBUMIN 3.6 g/dL (3.5-5.0); BILIRUBIN,TOTAL 0.7 mg/dL (0.2-1.0); CREATININE 0.8 mg/dL (0.5-1.5); PHOSPHORUS 3.6 mg/dL (2.5-4.9); POTASSIUM 3.3 mmol/L (3.5-5.1)
[2023-07-27] MEDS: ENOXAPARIN SODIUM 40 MG/0.4 ML SYRINGE SQ SCH (08:19)
[2023-07-27] MEDS: POTASSIUM CHLORIDE 20MEQ/100ML 100 ML IV PRN (11:48)
[2023-07-27] MEDS: HYDRALAZINE 20MG/ML VIAL IV PRN (16:34)
[2023-07-27] MEDS: METOPROLOL TARTRATE 1 MG/ML 5ML VIAL IV PRN (19:07)
[2023-07-27] MEDS: RANOLAZINE 500 MG TAB.SR.12H PO SCH (20:53)
[2023-07-27] MEDS: ATORVASTATIN 40 MG TABLET PO SCH (20:53)
[2023-07-27] MEDS: DIAZEPAM 5 MG TABLET PO SCH (23:20)
[2023-07-28] VITALS (23 sets, daily range): BP systolic 130–190; BP diastolic 54–130; PULSE 96–149; RESP 14–20; O2SAT 93–96
[2023-07-28 05:32] LABS: BASOPHILS # (AUTO) 0.04 K/uL (0.00-0.20); BASOPHILS % (AUTO) 0.3 % (0.0-5.0); HEMATOCRIT 42.6 % (36-48); IMMATURE GRANULOCYTE ABSOLUTE 0.18 K/uL (0-1); LYMPHOCYTES # (AUTO) 1.1 K/uL (1.0-4.8); LYMPHOCYTES % (AUTO) 6.7 % (21.0-51.0); MEAN CORPUSCULAR HEMOGLOBIN 33.1 pg (27.0-33.0); MEAN CORPUSCULAR HGB CONC 33.6 g/dL (32.0-36.0); MEAN CORPUSCULAR VOLUME 98.6 fL (79-99); MONOCYTES # (AUTO) 1.4 K/uL (0.1-1.0); MONOCYTES % (AUTO) 8.7 % (3.0-13.0); NEUTROPHILS # (AUTO) 13.1 K/uL (1.8-7.7); NEUTROPHILS % (AUTO) 83.2 % (40.0-77.0); NUCLEATED RED BLOOD CELLS 0.1 % (0.0-0.19); PLATELET COUNT (AUTO) 382 K/uL (130-400); RED BLOOD CELL COUNT(AUTO) 4.32 MIL/uL (4.00-5.50); RED CELL DISTRIBUTION WIDTH 20.7 % (11.0-15.5); WHITE BLOOD COUNT (AUTO) 15.8 K/uL (4.8-10.8)
[2023-07-28] MEDS: LEVOTHYROXINE 100 MCG TABLET PO SCH (05:42)
[2023-07-28 05:44] LABS: ALBUMIN 3.3 g/dL (3.5-5.0); BILIRUBIN,TOTAL 0.9 mg/dL (0.2-1.0); CREATININE 0.8 mg/dL (0.5-1.5); POTASSIUM 3.2 mmol/L (3.5-5.1); TOTAL PROTEIN, SERUM 6.6 g/dL (6.0-8.3)
[2023-07-28] MEDS: METOPROLOL SUCCINATE 50 MG TAB.SR.24H PO SCH (09:00)
[2023-07-28] MEDS: AMLODIPINE 5 MG TAB PO SCH (09:00)
[2023-07-28] MEDS ORDERED: PROPOFOL 10 MG/ML 20ML VIAL IV ONE (11:09)
[2023-07-28] MEDS ORDERED: LIDOCAINE PF 100MG/5ML (2%) SYRINGE 5ML ONE (11:09)
[2023-07-28] MEDS ORDERED: MIDAZOLAM HCL 1 MG/ML 2ML VIAL ONE (11:09)
[2023-07-28] MEDS: KCL 20 MEQ ERTAB PO PRN (17:59)
[2023-07-29] VITALS: BP 144/111; PULSE 104; RESP 18
[2023-07-29 04:39] VITALS: BP 122/90; PULSE 103; RESP 16
[2023-07-29 05:59] LABS: BASOPHILS # (AUTO) 0.04 K/uL (0.00-0.20); BASOPHILS % (AUTO) 0.4 % (0.0-5.0); EOSINOPHILS # (AUTO) 0.01 K/uL (0.00-0.70); EOSINOPHILS % (AUTO) 0.1 % (0.0-8.0); HEMATOCRIT 44.4 % (36-48); IMMATURE GRANULOCYTE ABSOLUTE 0.18 K/uL (0-1); LYMPHOCYTES # (AUTO) 1.2 K/uL (1.0-4.8); MEAN CORPUSCULAR HEMOGLOBIN 32.7 pg (27.0-33.0); MEAN CORPUSCULAR HGB CONC 32.9 g/dL (32.0-36.0); MEAN CORPUSCULAR VOLUME 99.3 fL (79-99); MONOCYTES # (AUTO) 1.1 K/uL (0.1-1.0); MONOCYTES % (AUTO) 9.5 % (3.0-13.0); NEUTROPHILS # (AUTO) 8.7 K/uL (1.8-7.7); NEUTROPHILS % (AUTO) 77.4 % (40.0-77.0); PLATELET COUNT (AUTO) 330 K/uL (130-400); RED BLOOD CELL COUNT(AUTO) 4.47 MIL/uL (4.00-5.50); RED CELL DISTRIBUTION WIDTH 19.9 % (11.0-15.5); WHITE BLOOD COUNT (AUTO) 11.3 K/uL (4.8-10.8)
[2023-07-29 06:30] LABS: ALBUMIN 3.1 g/dL (3.5-5.0); BILIRUBIN,TOTAL 0.7 mg/dL (0.2-1.0); CREATININE 0.7 mg/dL (0.5-1.5); POTASSIUM 3.7 mmol/L (3.5-5.1); TOTAL PROTEIN, SERUM 6.5 g/dL (6.0-8.3)
[2023-07-29 08:00] VITALS: BP 163/113; PULSE 97; RESP 18
[2023-07-29 09:30] VITALS: O2SAT 96
[2023-07-29] MEDS ORDERED: AMOX1TAB16 PO (11:18)
[2023-07-29 12:00] VITALS: BP 147/106; PULSE 96; RESP 18
== END 2023-07-29 14:30 | disposition home or self-care (01) ==
LOC: EDH 01:12 → EDHIP 10:00 → 3CH 22:37
PROVIDERS: ADMIT Hospitalist; ATTEND Hospitalist
DX: K81.0 Acute cholecystitis (principal); Z20.822 Contact with and (suspected) exposure to COVID-19; K31.84 Gastroparesis; I10 Essential (primary) hypertension; E78.5 Hyperlipidemia, unspecified; E78.00 Pure hypercholesterolemia, unspecified; E89.0 Postprocedural hypothyroidism; F41.8 Other specified anxiety disorders; Z90.710 Acquired absence of both cervix and uterus; Z79.899 Other long term (current) drug therapy; Z95.0 Presence of cardiac pacemaker
CPT/HCPCS: 96376 ×5; 96372 ×3; 96361; 96365; 96366 ×6; 96375; 99285; 82550; 80076; 83735 ×2; 84484; 80048; 80305; 83690; 85025 ×4; 87040 ×2; 87804 ×2; 86316 ×2; 81001; 36415 ×4; 87635; 71045; 73562; 72170 ×2; 73590; 74178; 76705; 93005; 83036; 84100; 80053 ×3; 83880; 85651; 86140; 43237; 84145; G0378 ×73; J3490 ×8; J2550; J0360 ×3; J2405 ×9; J2270 ×2; J2543 ×10; J2765; Q9967; J3480; J1650 ×2; J2001; J2250; J2704; A4620; A4215; A4223; A7002; A4222; J7030

== ENCOUNTER → 2023-08-13 | Outpatient (CLI) | payer OTHER ==
[~2023-08-13] MED LIST changes: +AMOX1TAB16 PO; -CELE-125 PO; +CLON0.1T PO; -DICY20TA2 PO; -DICY20TA3 PO; -DIPH1TAB PO; +DOCU-280 PO; -GABA-529; +GABA-529 PO; -LATA2.5D14 OP; +LEVO100C4 PO; -LEVO88CA4 PO; +LOSA25TA41 PO; +MIRA50TA PO; +MIRT-22 PO; -ONDA-104 PO; -SUCR1TAB2 PO
[2023-08-13 11:41] LABS: ALBUMIN 3.8 g/dL (3.5-5.0); BILIRUBIN,TOTAL 0.3 mg/dL (0.2-1.0); CREATININE 0.7 mg/dL (0.5-1.5); POTASSIUM 3.4 mmol/L (3.5-5.1); TOTAL PROTEIN, SERUM 7.4 g/dL (6.0-8.3)
[2023-08-13 11:54] LABS: BASOPHILS # (AUTO) 0.06 K/uL (0.00-0.20); BASOPHILS % (AUTO) 0.7 % (0.0-5.0); EOSINOPHILS # (AUTO) 0.05 K/uL (0.00-0.70); EOSINOPHILS % (AUTO) 0.6 % (0.0-8.0); HEMATOCRIT 39.7 % (36-48); IMMATURE GRANULOCYTE ABSOLUTE 0.07 K/uL (0-1); LYMPHOCYTES # (AUTO) 2.3 K/uL (1.0-4.8); LYMPHOCYTES % (AUTO) 26.8 % (21.0-51.0); MEAN CORPUSCULAR HEMOGLOBIN 34.1 pg (27.0-33.0); MEAN CORPUSCULAR HGB CONC 33.2 g/dL (32.0-36.0); MEAN CORPUSCULAR VOLUME 102.6 fL (79-99); MONOCYTES # (AUTO) 0.7 K/uL (0.1-1.0); MONOCYTES % (AUTO) 8.1 % (3.0-13.0); NEUTROPHILS # (AUTO) 5.4 K/uL (1.8-7.7); PLATELET COUNT (AUTO) 411 K/uL (130-400); RED BLOOD CELL COUNT(AUTO) 3.87 MIL/uL (4.00-5.50); RED CELL DISTRIBUTION WIDTH 18.1 % (11.0-15.5); WHITE BLOOD COUNT (AUTO) 8.6 K/uL (4.8-10.8)
== END | disposition home or self-care (01) ==
LOC: LAB 10:58
PROVIDERS: ATTEND Internal Medicine Gastroenterology
DX: R93.2 Abnormal findings on diagnostic imaging of liver and biliary tract (principal)
CPT/HCPCS: 36415; 80053; 82150; 83690; 85025

== ENCOUNTER 2023-09-13 21:39 | Emergency (ER) | payer OTHER ==
[~2023-09-13] VITALS: Ht 154.9 cm; Wt 51.3 kg
[2023-09-13 22:26] LABS: BASOPHILS # (AUTO) 0.08 K/uL (0.00-0.20); BASOPHILS % (AUTO) 0.4 % (0.0-5.0); EOSINOPHILS # (AUTO) 0.02 K/uL (0.00-0.70); EOSINOPHILS % (AUTO) 0.1 % (0.0-8.0); HEMATOCRIT 43.2 % (36-48); IMMATURE GRANULOCYTE ABSOLUTE 0.17 K/uL (0-1); LYMPHOCYTES # (AUTO) 1.6 K/uL (1.0-4.8); LYMPHOCYTES % (AUTO) 7.1 % (21.0-51.0); MEAN CORPUSCULAR HEMOGLOBIN 34.6 pg (27.0-33.0); MEAN CORPUSCULAR VOLUME 101.6 fL (79-99); MONOCYTES % (AUTO) 4.7 % (3.0-13.0); NEUTROPHILS # (AUTO) 19.1 K/uL (1.8-7.7); NEUTROPHILS % (AUTO) 86.9 % (40.0-77.0); PLATELET COUNT (AUTO) 530 K/uL (130-400); RED BLOOD CELL COUNT(AUTO) 4.25 MIL/uL (4.00-5.50)
[2023-09-13 22:42] LABS: ALBUMIN 4.1 g/dL (3.5-5.0); BILIRUBIN,TOTAL 0.4 mg/dL (0.2-1.0); POTASSIUM 3.1 mmol/L (3.5-5.1); TOTAL PROTEIN, SERUM 8.3 g/dL (6.0-8.3)
[2023-09-14 00:19] LABS: APPEARANCE,URINE CLEAR (CLEAR); BILIRUBIN,URINE NEGATIVE (NEGATIVE); COLOR,URINE YELLOW (YELLOW); GLUCOSE, URINE (UA) NEGATIVE (NEGATIVE); KETONES,URINE 20 mg/dL (NEGATIVE); LEUKOCYTE ESTERASE ,URINE NEGATIVE Leu/uL (NEGATIVE); NITRATE,URINE NEGATIVE (NEGATIVE); PROTEIN,URINE 300 mg/dL (NEGATIVE)
[2023-09-14 00:24] LABS: ADD UA MICROSCOPIC YES
[2023-09-14 00:25] LABS: BACTERIA,URINE FEW /HPF (None Seen); MUCUS,URINE FEW LPF (None Seen); SQUAMOUS EPITHELIAL CELL,UR FEW /HPF (0-2)
[2023-09-14] MEDS: ONDANSETRON 4MG INJ IVP ONE (01:24)
[2023-09-14] MEDS: PANTOPRAZOLE 40 MG/VIAL IVP ONE (01:24)
[2023-09-14] MEDS: 0.9%NACL 1000ML 1,000 ML IV ONE (01:25)
[2023-09-14] MEDS: KETOROLAC 15MG/ML VIAL (15MG/ML) IV ONE (02:35)
[2023-09-14] MEDS: KCL 20 MEQ ERTAB PO ONE (02:35)
[2023-09-14] MEDS ORDERED: PANT40TA55 PO (02:48)
[2023-09-14] MEDS ORDERED: ONDA4TAB10 PO (02:48)
[2023-09-14 03:40] VITALS: BP 160/69; PULSE 90; RESP 18; O2SAT 97
== END 2023-09-14 08:11 | disposition home or self-care (01) ==
LOC: EDH 21:39
DX: K52.9 Noninfective gastroenteritis and colitis, unspecified (principal); E86.0 Dehydration; M79.672 Pain in left foot; E78.00 Pure hypercholesterolemia, unspecified; I10 Essential (primary) hypertension; M19.90 Unspecified osteoarthritis, unspecified site; Z79.82 Long term (current) use of aspirin; K31.84 Gastroparesis; Z79.899 Other long term (current) drug therapy; Z88.1 Allergy status to other antibiotic agents; Z90.710 Acquired absence of both cervix and uterus
CPT/HCPCS: 99285; 80053; 83690; 85025; 87040 ×2; 83605; 81001; 36415; 74176; 96374; 96375; 96361; J7030; J2405; C9113; J1885

== ENCOUNTER → 2024-03-02 | Outpatient (CLI) | payer OTHER ==
[~2024-03-02] MED LIST changes: +ACET325T51 PO; -AEC81 PO; -AMLO-258 PO; -AMOX1TAB16 PO; -ATOR40TA69 PO; +ATOR40TA71 PO; -BREX1TAB PO; -BUSP10TA3 PO; +CYAN-52 PO; -DIAZ5TAB4 PO; -DICL75TA5 PO; -DOCU-280 PO; +DOCU50CA13 PO; -ELUX100T PO; -FLUO40CA49 PO; +FLUO40CA7 PO; +FOLI1 PO; -GABA-529 PO; -LEVO100C4 PO; +LEVO112C4 PO; -LOSA25TA41 PO; +METO-391 PO; -METO-409 PO; -METO5 PO; +METO5TAB2 PO; -MIRA50TA PO; -MIRT-22 PO; +ONDA-105 PO; +PYRI100L2 PO; -RANO500T6 PO; -TEMA15CA PO; -TIZA-211 PO; -TRAM-355 PO; +ZOLP5TAB8 PO
== END | disposition home or self-care (01) ==
LOC: SHCH 08:16
PROVIDERS: ATTEND Internal Medicine Cardiovascular Disease
DX: I10 Essential (primary) hypertension (principal)
CPT/HCPCS: 93975

== ENCOUNTER → 2024-05-04 | Outpatient (CLI) | payer OTHER ==
[~2024-05-04] MED LIST changes: +ACET-3859 PO; -ACET325T51 PO
--- NOTE | 2024-05-04 15:08 | HMCIMG ---
CT LUMBAR SPINE W/O CONTRAST HISTORY: Low back pain COMPARISON: None TECHNIQUE: Multiple sequential axial images of the lumbar spine were obtained including post processing sagittal and coronal reconstruction images. Patient was not given contrast through intravenous route. FINDINGS: Orthopedic fixation plates and screws are seen traversing the L3-L4 level. Disc fusion is are seen at L2 L3-4, L4-5 and L5-S1 levels. Central canal narrowing is seen worse at L2-3 level. Laminectomy changes are seen at L3-4, L4-5 levels. There are degenerative changes in lumbar spine spondylosis. There is no loss of vertebral height. Evaluation for disc and cord pathology is limited with CT study. No evidence of fracture or dislocation is seen. There is diverticulosis. IMPRESSION: 1. Findings as described above. CT was performed with one or more following dose reduction techniques: automated exposure control, adjustment of the mA and kv according to patient's size, or use of a iterative reconstruction technique.
== END | disposition home or self-care (01) ==
LOC: RAH 14:13
PROVIDERS: ATTEND Internal Medicine
DX: M47.26 Other spondylosis with radiculopathy, lumbar region (principal); M43.27 Fusion of spine, lumbosacral region; K57.30 Diverticulosis of large intestine without perforation or abscess without bleeding; M54.50 Low back pain, unspecified; Z98.890 Other specified postprocedural states
CPT/HCPCS: 72131

== ENCOUNTER 2024-06-19 22:39 | Emergency (ER) | payer OTHER ==
[~2024-06-19] VITALS: Ht 154.9 cm; Wt 65.8 kg
[2024-06-19 23:13] LABS: BASOPHILS # (AUTO) 0.06 K/uL (0.00-0.20); BASOPHILS % (AUTO) 0.7 % (0.0-5.0); EOSINOPHILS # (AUTO) 0.09 K/uL (0.00-0.70); HEMATOCRIT 44.2 % (36-48); IMMATURE GRANULOCYTE ABSOLUTE 0.04 K/uL (0-1); LYMPHOCYTES # (AUTO) 2.2 K/uL (1.0-4.8); LYMPHOCYTES % (AUTO) 24.3 % (21.0-51.0); MEAN CORPUSCULAR HEMOGLOBIN 32.2 pg (27.0-33.0); MEAN CORPUSCULAR HGB CONC 33.5 g/dL (32.0-36.0); MEAN CORPUSCULAR VOLUME 96.3 fL (79-99); MONOCYTES # (AUTO) 0.7 K/uL (0.1-1.0); MONOCYTES % (AUTO) 7.8 % (3.0-13.0); NEUTROPHILS % (AUTO) 65.8 % (40.0-77.0); PLATELET COUNT (AUTO) 348 K/uL (130-400); RED BLOOD CELL COUNT(AUTO) 4.59 MIL/uL (4.00-5.50); RED CELL DISTRIBUTION WIDTH 14.5 % (11.0-15.5); WHITE BLOOD COUNT (AUTO) 9.1 K/uL (4.8-10.8)
--- NOTE | 2024-06-19 23:26 | HMCIMG ---
CHEST 1VW HISTORY: Chest pain COMPARISON: 11/14/2023 FINDINGS: A frontal projection of the chest was obtained. No acute pulmonary infiltrates is seen. The heart is borderline enlarged. Degenerative changes are seen. No evidence of aortic calcification is seen. Prominent interstitial markings are seen. IMPRESSION: 1. No acute pulmonary infiltrate is seen.
--- NOTE | 2024-06-19 23:37 | EKG ---
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
[2024-06-19 23:44] LABS: B-TYPE NATRIURETIC PEPTIDE 34 pg/mL (0-100)
[2024-06-19 23:56] LABS: INR <= 0.93 (0.85-1.15); PROTHROMBIN TIME 10.1 SEC (9.6-11.6)
[2024-06-19 23:57] LABS: PARTIAL THROMBOPLASTIN TIME 28.8 SEC (26.3-35.5)
--- NOTE | 2024-06-19 23:59 | ERN ---
General Chief Complaint: Chest Pain Stated Complaint: CHEST PRESSURE Time Seen by MD: 22:49 Source: patient History of Present Illness Initial Comments PATIENT IS A 63-YEAR-OLD FEMALE COMING IN TO BE EVALUATED FOR CHEST PRESSURE. PATIENT STATES HE HAS A HISTORY OF STENT PLACEMENT AND HE WAS AGO. SHE ALSO STATES THAT SHE STOPPED TAKING HER ASPIRIN ON DECISION SHE CAME UP ON HER OWN. SHE STATES THAT THIS PRESSURE HAS BEEN ONGOING FOR THREE DAYS AND GOT HER CONCERNED DECIDED TO COME IN TO BE EVALUATED TODAY. Allergies: Coded Allergies: ciprofloxacin (Unverified Allergy, Unknown, 03/26/17) Home Meds Active Scripts Clonidine HCl (Clonidine HCl) 0.1 Mg Tablet, 0.1 MG PO TID for 30 Days, #90 TAB 1 Refill Prov:ROBERT LEAVITT MD 11/16/23 Reported Medications Acetaminophen (Acetaminophen) 325 Mg Tablet, 325 MG PO AD PRN for PAIN, #2 TAB 11/13/23 Docusate Sodium (Stool Softener) 50 Mg Capsule, 50 MG PO DAILY PRN for CONSTIPATION, CAP 11/13/23 Folic Acid (Folvite) 1 Mg Tab, 1 MG PO DAILY, TAB 11/13/23 Cyanocobalamin (Vitamin B-12) (Vitamin B-12) 1,000 Mcg Tablet, 1000 MCG PO DAILY, TAB 11/13/23 Fenofibrate Nanocrystallized (Fenofibrate) 145 Mg Tablet, 145 MG PO DAILY, TAB 11/13/23 Pantoprazole Sodium (Pantoprazole Sodium) 40 Mg Tablet.dr, 40 MG PO DAILY, TAB 11/13/23 Levothyroxine Sodium (Levothyroxine) 112 Mcg Capsule, 112 MCG PO DAILY, CAP 11/13/23 Ondansetron HCl (Ondansetron HCl) 8 Mg Tablet, 8 MG PO TIDP MDD 24, TAB 11/13/23 Metoclopramide HCl (Metoclopramide HCl) 5 Mg Tablet, 5 MG PO QID, TAB 11/13/23 Metoprolol Succinate (Metoprolol Succinate) 50 Mg Tab.er.24h, 50 MG PO DAILY, TAB 11/13/23 Clonidine HCl (Clonidine HCl) 0.1 Mg Tablet, 0.1 MG PO TID, TAB 11/13/23 Topiramate (Topiramate) 100 Mg Tablet, 100 MG PO DAILY, TAB 11/13/23 Nitroglycerin (Nitroglycerin) 0.4 Mg Tab.subl, 0.4 MG SL AD PRN for CHEST PAIN, TAB.SL 11/13/23 Zolpidem Tartrate (Zolpidem Tartrate) 5 Mg Tablet, 10 MG PO HS, TAB 11/13/23 Pyridoxine HCl (Vitamin B6) (Vitamin B6) 100 Mg/2.5 Ml Liquid, 50 MG PO AD 11/13/23 Fluoxetine HCl (Prozac) 40 Mg Capsule, 40 MG PO DAILY, CAP 11/13/23 Atorvastatin Calcium (Atorvastatin Calcium) 40 Mg Tablet, 40 MG PO DAILY, TAB 11/13/23 Past Medical History Past Medical History: Anxiety, Depression, High Cholesterol, Hypertension Medical History Other: Urinary incontinence, CHRONIC BACK PAIN, GASTROPARESIS Past Surgical History: Other Surgical History Other: HX OF 3 BACK SX; THYROIDECTOMY Family History Family History: DM Social History Social History: Negative, Lives with family Female( History) History: Not Applicable ROS Dictation CONSTITUTIONAL: NO CHILLS, NO FEVER, NO WEAKNESS, NO DIAPHORESIS, NO MALAISE. HEAD/FACE: NO SIGNS OF TRAUMA. EENT: NO EYE PAIN, NO BLURRED VISION, NO TEARING, NO DOUBLE VISION, NO EAR PAIN, NO EAR DISCHARGE, NO NOSE PAIN, NO NASAL CONGESTION, NO THROAT PAIN, NO THROAT SWELLING, NO MOUTH PAIN. RESPIRATORY: NO COUGH, NO ORTHOPNEA, NO SOB, NO STRIDOR, NO WHEEZING. CARDIOVASCULAR: CHEST PAIN, NO EDEMA, NO PALPITATIONS, NO SYNCOPE. GASTROINTESTINAL/ABDOMINAL: NO ABDOMINAL PAIN, NO CONSTIPATION, NO DIARRHEA, NO NAUSEA, NO VOMITING. GENITOURINARY: NO ABNORMAL DISCHARGE, NO DYSURIA, NO FREQUENT URINATION, NO HEMATURIA. NO COMPLAINTS OF PAIN IN THE GENITALS. MUSCULOSKELETAL: NO BACK PAIN, NO GOUT, NO JOINT PAIN, NO JOINT SWELLING, NO MUSCLE PAIN, NO MUSCLE STIFFNESS, NO NECK PAIN. INTEGUMENTARY: NO CHANGE IN COLOR, NO CHANGE IN HAIR/NAILS, NO DRYNESS, NO LESION, NO LUMPS, NO RASH. NEUROLOGICAL/PSYCH: NO ANXIETY, NOT DEPRESSED, NO EMOTIONAL PROBLEM, NO HEADACHE, NO NUMBNESS, NO PRE-EXISTING DEFICIT, NO HISTORY OF SEIZURES, NO TREMORS, NO WEAKNESS. HEMATOLOGIC/LYMPHATIC: NOT ANEMIC, NO HISTORY OF BLOOD CLOTS, NO APPARENT BLEEDING, NO BRUISING, GLANDS NOT SWOLLEN. ALL SYSTEMS NEGATIVE, EXCEPT NOTED. Physical Exam Physical Exam Dictation VITAL SIGNS: REVIEWED. GENERAL APPEARANCE: ALERT, ORIENTED X3, NO ACUTE DISTRESS, OBESE. HEAD AND FACE: NON-TRAUMATIC. EYES: PERRL, PINK CONJUNCTIVAS, EYELID NO TRAUMA, ANTERIOR CHAMBER CLEAR. EARS: PINNAS INTACT AND NO SIGNS OF TRAUMA OR ERYTHEMA. EAR CANALS CLEAR AND NO DISCHARGE. TMS NO ERYTHEMA. NOSE: NO DISCHARGE, NO BLEEDING. OROPHARYNX: MOUTH NORMAL, TEETH NO CARIES, TONGUE PINK. PHARYNX CLEAR, NO ERYTHEMA. TONSILS NO EXUDATES, NO ABSCESSES NOTED. MUCOUS MEMBRANE MOIST. NECK: SUPPLE, NON-TENDER, NO THYROMEGALY, NO MASSES, NO JVD, NO BRUITS. BREAST: DEFERRED. CHEST: NO TENDERNESS, NO CREPITUS, NO PARADOXICAL MOVEMENT, NO RETRACTIONS. LUNGS: CLEAR, WELL-VENTILATED, SYMMETRIC, NO RALES, NO WHEEZING, NO RHONCHI, NO STRIDOR, GOOD BREATH SOUNDS BILATERALLY. HEART: REGULAR RATE, REGULAR RHYTHM, NO MURMUR, NO GALLOPS. VASCULAR: NO PERIPHERAL EDEMA. ABDOMEN: SOFT, POSITIVE BOWEL SOUNDS, NONDISTENDED, NO GUARDING, NONTENDER, NO REBOUND, NO MASSES NO HEPATOMEGALY, NO SPLENOMEGALY, NO HORNER'S SIGN, NO HERNIAS. RECTAL: DEFERRED. GENITAL: DEFERRED. NEUROLOGICAL: NORMAL SPEECH, GROSS MOTOR FUNCTION INTACT, GROSS SENSORY FUNCTION INTACT. MUSCULOSKELETAL: NECK NONTENDER, FULL RANGE OF MOTION, BACK NONTENDER, FULL RANGE OF MOTION. EXTREMITIES: NONTENDER, FULL RANGE OF MOTION. SKIN: COLOR PINK, DRY, NO TURGOR, NO RASH, NO LACERATIONS, NO ABRASIONS, NO CONTUSIONS. LYMPHATICS: DEFERRED. Results Laboratory and Microbiology Lab and Micro Result Laboratory Tests Test 06/19/24 23:05 06/19/24 23:27 06/19/24 23:56 06/20/24 01:09 White Blood Count 9.1 K/uL (4.8-10.8) Red Blood Count 4.59 MIL/uL (4.00-5.50) Hemoglobin 14.8 g/dL (12.0-16.0) Hematocrit 44.2 % (36-48) Mean Corpuscular Volume 96.3 fL (79-99) Mean Corpuscular Hemoglobin 32.2 pg (27.0-33.0) Mean Corpuscular Hemoglobin Concent 33.5 g/dL (32.0-36.0) Red Cell Distribution Width 14.5 % (11.0-15.5) Platelet Count 348 K/uL (130-400) Mean Platelet Volume 8.6 fL (7.5-10.5) Immature Granulocyte % (Auto) 0.4 % (0-1) Neutrophils (%) (Auto) 65.8 % (40.0-77.0) Lymphocytes (%) (Auto) 24.3 % (21.0-51.0) Monocytes (%) (Auto) 7.8 % (3.0-13.0) Eosinophils (%) (Auto) 1.0 % (0.0-8.0) Basophils (%) (Auto) 0.7 % (0.0-5.0) Neutrophils # (Auto) 6.0 K/uL (1.8-7.7) Lymphocytes # (Auto) 2.2 K/uL (1.0-4.8) Monocytes # (Auto) 0.7 K/uL (0.1-1.0) Eosinophils # (Auto) 0.09 K/uL (0.00-0.70) Basophils # (Auto) 0.06 K/uL (0.00-0.20) Absolute Immature Granulocyte (auto 0.04 K/uL (0-1) Nucleated Red Blood Cells 0.0 % (0.0-0.19) Troponin I High Sensitivity < 4 ng/L (4-50) L 5 ng/L (4-50) B-Type Natriuretic Peptide 34 pg/mL (0-100) Prothrombin Time 10.1 SEC (9.6-11.6) Prothromb Time International Ratio <= 0.93 (0.85-1.15) Activated Partial Thromboplast Time 28.8 SEC (26.3-35.5) Sodium Level 140 mmol/L (136-145) Potassium Level 3.2 mmol/L (3.5-5.1) L Chloride Level 103 mmol/L (101-111) Carbon Dioxide Level 25 mmol/L (21-32) Blood Urea Nitrogen 21 mg/dL (7-18) H Creatinine 1.0 mg/dL (0.5-1.0) Glomerular Filtration Rate Calc 64 mL/min (>90) Random Glucose 91 mg/dL (70-105) Total Calcium 9.0 mg/dL (8.5-10.1) Magnesium Level 2.20 mg/dL (1.80-2.40) Total Creatine Kinase 118 U/L (21-232) # Urine Color YELLOW (YELLOW) Urine Appearance CLEAR (CLEAR) Urine pH 6.0 (5.0-8.0) Urine Specific [place] 1.030 (1.001-1.031) Urine Protein 10 mg/dL (NEGATIVE) H Urine Glucose (UA) NEGATIVE mg/dL (NEGATIVE) Urine Ketones NEGATIVE mg/dL (NEGATIVE) Urine Occult Blood NEGATIVE (NEGATIVE) Urine Nitrate NEGATIVE (NEGATIVE) Urine Bilirubin NEGATIVE mg/dL (NEGATIVE) Urine Urobilinogen 0.2 mg/dL (0.2-1.0) Urine Leukocyte Esterase 25 Naye/uL (NEGATIVE) H Urine RBC 2-5 /HPF (0-1) H Urine WBC 2-5 /HPF (0-1) H Urine Squamous Epithelial Cells FEW /HPF (0-2) Urine Bacteria FEW /HPF (None Seen) Labs Reviewed?: Yes EKG/XRAY/US/CT/MRI EKG Comment 06/19/2024 TIME 10:57 P.M. VENTRICULAR RATE [address] WAVE ELEVATION OR DEPRESSION SINUS RHYTHM X-RAY Comment [address] [address] IMAGING REPORT Signed PATIENT: MANNY TORRES MR#: [id number] : 1960 SEX: F AGE: 63 LOCATION: [facility] ORDER 53 STATUS: REG ER REPORT#: [id number] SERVICE 50 REASON: CP ORDERING PHYSICIAN: EVA QUICK MD PROCEDURE: CXR1VW - CHEST 1VW CHEST 1VW HISTORY: Chest pain COMPARISON: 11/14/2023 FINDINGS: A frontal projection of the chest was obtained. No acute pulmonary infiltrates is seen. The heart is borderline enlarged. Degenerative changes are seen. No evidence of aortic calcification is seen. Prominent interstitial markings are seen. IMPRESSION: 1. No acute pulmonary infiltrate is seen. DICTATED BY: ERIK ECHEVARRIA MD DATE: 06/19/242323 ELECTRONICALLY SIGNED BY: ERIK ECHEVARRIA MD DATE: 06/19/242326 [facility] MDM: DIFFERENTIAL DIAGNOSIS: ANGINA, STEMI, NSTEMI, GERD, GASTRITIS PATIENT IS A 63-YEAR-OLD FEMALE COMING IN TO BE EVALUATED FOR CHEST PRESSURE. PATIENT STATES THAT SHE HAS HAD THIS CHEST PRESSURE FOR THREE DAYS. UPON EVALUATION CARDIAC ENZYMES NEGATIVE X2 CHEST X-RAY NEGATIVE. PATIENT RECEIVED GI COCKTAIL AND IV PROTONIX STATES HE FEELS MUCH BETTER. PATIENT WILL BE DISCHARGED WITH A DIAGNOSIS OF GERD GASTRITIS. I ADVISED HER APPROPRIATE FOLLOW UP WITH PCP IN 1-2 DAYS. MEDICATION WILL BE PROVIDED FOR SYMPTOMATIC RELIEF. ALSO ADVISED HER IF WITH THE PAIN RESURFACES OR IF SHE NEEDS HELP TO FOLLOW UP WITH THE CLOSEST ER OR WITH PCP. ED Course Orders Procedure Category Date Status Time Cbc With Differential LAB 06/19/24 Complete 22:51 Prothrombin Time With LAB 06/19/24 Complete INR 22:51 B-Type Natriuretic LAB 06/19/24 Complete Peptide 22:51 Chest 1vw RAD 06/19/24 Resulted 22:51 12 Lead Ekg Tracing- EKG 06/19/24 Complete Technical 22:51 Magnesium LAB 06/19/24 Complete 22:51 Creatine Kinase, Total LAB 06/19/24 Complete 22:51 Troponin I High LAB 06/19/24 Complete Sensitivity 22:51 Urinalysis Profile LAB 06/19/24 Complete 22:51 Partial LAB 06/19/24 Complete Thromboplastin Time 22:51 Basic Metabolic Panel LAB 06/19/24 Complete 22:51 Pantoprazole 40mg Inj PHA 06/20/24 Complete (Protonix 40mg Inj 00:00 Troponin I High LAB 06/19/24 Complete Sensitivity 23:55 Lidocaine Hcl 2% PHA 06/20/24 Complete Viscous (Lidocaine Hcl 00:00 Mag/Alum/Simeth 30ml PHA 06/20/24 Complete (Maalox Plus 30ml) 00:00 Nitroglycerin 0.4mg PHA 06/20/24 In Process Sl Tab (Nitrostat) 02:00 Aspirin 325mg Ec Tab PHA 06/20/24 Complete (Aspirin 325mg Ec T 02:00 Current Medications Medications (Trade) Dose Ordered Sig/Maria Teresa Route PRN Reason Start Time Stop Time Status Last Admin Dose Admin Al Hydroxide/Mg Hydroxide (MAALox PLUS 30ML) 30 ml ONCE ONCE PO 06/20/24 00:00 06/20/24 00:01 DC 06/20/24 00:25 Aspirin (Aspirin 325mg Ec Tab) 325 mg ONCE ONCE PO 06/20/24 02:00 06/20/24 02:01 DC 06/20/24 02:14 Lidocaine HCl (Lidocaine HCl 2% Viscous) 10 ml ONCE ONCE PO 06/20/24 00:00 06/20/24 00:01 DC 06/20/24 00:25 Nitroglycerin (Nitrostat) 0.4 mg AD PRN SL CHEST PAIN 06/20/24 02:00 07/20/24 01:59 06/20/24 01:56 Pantoprazole Sodium (PROTonix 40MG INJ) 40 mg ONCE ONCE IVP 06/20/24 00:00 06/20/24 00:01 DC 06/20/24 00:25 Vital Signs Date Time Temp Pulse Resp B/P (MAP) Pulse Ox O2 Delivery O2 Flow Rate FiO2 06/19/24 23:34 65 17 151/94 96 Room Air* 0 21 06/19/24 22:48 98.8 68 18 168/106 99 DX & DISP Disposition: Discharge Departure Impression: Primary Impression: Gastritis and duodenitis Additional Impression: Hx of diabetic gastroparesis Condition: Stable Scripts Pantoprazole Sodium (Protonix) 40 Mg Ectab 1 TAB PO DAILY for 30 Days, #30 TAB 0 Refills Prov: EVA QUICK MD 06/20/24 Additional Instructions: FOLLOW-UP WITH PRIMARY CARE PROVIDER IN 1 TO 2 DAYS. TAKE MEDICATIONS DIRECTED HERE IN THE EMERGENCY ROOM. OKAY TO CONTINUE HOME MEDICATIONS UNLESS OTHERWISE DISCUSSED DURING YOUR VISIT IN THE EMERGENCY ROOM TODAY. RETURN TO YOUR NEAREST EMERGENCY ROOM IF SYMPTOMS WORSEN OR IF THERE IS NO IMPROVEMENT. CALL 911 IF YOU NEED IMMEDIATE ASSISTANCE. TAKE TYLENOL [id number] NEEDED AND IF NO CONTRAINDICATIONS ARE PRESENT. INCREASE ORAL HYDRATION. A WOUND CULTURE OR URINE CULTURE WAS ORDERED HERE IN THE EMERGENCY ROOM DEPARTMENT PLEASE FOLLOW-UP WITH PRIMARY CARE PROVIDER AND ADVISE THEM TO GET REPEAT PORTS FROM OUR FACILITY. IF YOU HAD ANY TREVER WRAP/SPLINTS THAT WERE APPLIED HERE, PLEASE DO NOT REMOVE THEM UNTIL YOU SEE YOUR PRIMARY CARE OR SPECIALTY. REFERRALS: Referrals: MIKE SRINIVASAN MD (PCP) Time of Disposition: 02:18 EVA QUICK MD Jun 19, 2024 23:59
[2024-06-20 00:01] LABS: APPEARANCE,URINE CLEAR (CLEAR); BILIRUBIN,URINE NEGATIVE (NEGATIVE); COLOR,URINE YELLOW (YELLOW); GLUCOSE, URINE (UA) NEGATIVE (NEGATIVE); KETONES,URINE NEGATIVE (NEGATIVE); LEUKOCYTE ESTERASE ,URINE 25 Leu/uL (NEGATIVE); NITRATE,URINE NEGATIVE (NEGATIVE); OCCULT BLOOD,URINE NEGATIVE (NEGATIVE); PROTEIN,URINE 10 mg/dL (NEGATIVE); UROBILINOGEN,URINE 0.2 mg/dL (0.2-1.0)
[2024-06-20 00:05] LABS: POTASSIUM 3.2 mmol/L (3.5-5.1)
[2024-06-20 00:06] LABS: ADD UA MICROSCOPIC YES
[2024-06-20 00:10] LABS: MAGNESIUM 2.2 mg/dL (1.80-2.40)
[2024-06-20 00:11] LABS: BACTERIA,URINE FEW /HPF (None Seen); MUCUS,URINE RARE LPF (None Seen); SQUAMOUS EPITHELIAL CELL,UR FEW /HPF (0-2)
[2024-06-20] MEDS: LIDOCAINE HCL 2% VISCOUS 15 ML UDCUP PO ONE (00:25)
[2024-06-20] MEDS: MAG/ALUM/SIMETH 30 ML UDCUP PO ONE (00:25)
[2024-06-20] MEDS: PANTOPrazole 40 MG/VIAL IVP ONE (00:25)
[2024-06-20] MEDS: NITROGLYCERIN 0.4 MG SL TAB SL PRN (01:56)
[2024-06-20] MEDS: ASPIRIN 325MG EC TAB PO ONE (02:14)
[2024-06-20 02:16] VITALS: BP 148/81; PULSE 78; RESP 17; TEMP 98.4; O2SAT 98
[2024-06-20] MEDS ORDERED: PANT40TA55 PO (02:18)
== END 2024-06-20 02:28 | disposition home or self-care (01) ==
LOC: EDH 22:39
DX: K29.70 Gastritis, unspecified, without bleeding (principal); K29.80 Duodenitis without bleeding; K31.84 Gastroparesis; E11.9 Type 2 diabetes mellitus without complications; E78.00 Pure hypercholesterolemia, unspecified; F32.A Depression, unspecified; F41.9 Anxiety disorder, unspecified; I10 Essential (primary) hypertension; Z79.890 Hormone replacement therapy; Z79.899 Other long term (current) drug therapy; Z88.1 Allergy status to other antibiotic agents; Z90.89 Acquired absence of other organs
CPT/HCPCS: 99285; 71045; 82550; 83735; 84484 ×2; 80048; 83880; 85025; 85610; 85730; 81001; 36415; 93005; 96374; J2470

== ENCOUNTER → 2024-07-22 | Outpatient (CLI) | payer OTHER, MEDICARE ==
[~2024-07-22] MED LIST changes: +PANT40TA55 PO
--- NOTE | 2024-07-22 10:12 | HMCIMG ---
Exam Type: MAMMO SCREENING BILATERAL Clinical Information: ANNUAL SCREENING Comparison: July 10, 2023 Technique: Mammogram with CAD was performed with CC and MLO projections. CAD shows no worrisome regions. FINDINGS: The breasts are almost entirely fatty. No dominant mass or suspicious microcalcification identified. There is no nipple retraction or skin thickening. IMPRESSION: 1. No mammographic signs of malignancy. 2. Routine follow-up recommended. CATEGORY 1: NEGATIVE Note: A negative x-ray should not delay biopsy if a dominant or clinically suspicious mass is present, since 8-10% of cancers are not identified by mammography.
== END | disposition home or self-care (01) ==
LOC: RAH 09:22
PROVIDERS: ATTEND Internal Medicine
DX: Z12.31 Encounter for screening mammogram for malignant neoplasm of breast (principal)
CPT/HCPCS: 77067

== ENCOUNTER 2024-07-23 17:54 | Emergency (ER) | payer OTHER, MEDICARE ==
[~2024-07-23] VITALS: Ht 154.9 cm; Wt 68.0 kg
[2024-07-23 18:16] LABS: BASOPHILS # (AUTO) 0.04 K/uL (0.00-0.20); BASOPHILS % (AUTO) 0.4 % (0.0-5.0); HEMATOCRIT 43.2 % (36-48); IMMATURE GRANULOCYTE ABSOLUTE 0.11 K/uL (0-1); LYMPHOCYTES # (AUTO) 1.9 K/uL (1.0-4.8); LYMPHOCYTES % (AUTO) 18.3 % (21.0-51.0); MEAN CORPUSCULAR HEMOGLOBIN 32.9 pg (27.0-33.0); MEAN CORPUSCULAR HGB CONC 32.9 g/dL (32.0-36.0); MONOCYTES # (AUTO) 0.8 K/uL (0.1-1.0); MONOCYTES % (AUTO) 7.6 % (3.0-13.0); NEUTROPHILS # (AUTO) 7.3 K/uL (1.8-7.7); NEUTROPHILS % (AUTO) 71.6 % (40.0-77.0); PLATELET COUNT (AUTO) 382 K/uL (130-400); RED BLOOD CELL COUNT(AUTO) 4.32 MIL/uL (4.00-5.50); WHITE BLOOD COUNT (AUTO) 10.2 K/uL (4.8-10.8)
[2024-07-23 18:31] LABS: CREATININE 0.9 mg/dL (0.5-1.0); POTASSIUM 3.8 mmol/L (3.5-5.1)
[2024-07-23 18:37] LABS: B-TYPE NATRIURETIC PEPTIDE 38 pg/mL (0-100)
[2024-07-23 18:38] LABS: APPEARANCE,URINE CLEAR (CLEAR); BILIRUBIN,URINE NEGATIVE (NEGATIVE); COLOR,URINE LIGHT-YELLOW (YELLOW); GLUCOSE, URINE (UA) NEGATIVE (NEGATIVE); KETONES,URINE NEGATIVE (NEGATIVE); LEUKOCYTE ESTERASE ,URINE NEGATIVE Leu/uL (NEGATIVE); NITRATE,URINE NEGATIVE (NEGATIVE); PH,URINE 5.5 (5.0-8.0); PROTEIN,URINE 30 mg/dL (NEGATIVE); UROBILINOGEN,URINE 0.2 mg/dL (0.2-1.0)
[2024-07-23 18:39] LABS: ADD UA MICROSCOPIC YES
[2024-07-23 18:40] LABS: BACTERIA,URINE RARE /HPF (None Seen); HYALINE CASTS, URINE 0-1 /LPF (0-1 /LPF); MUCUS,URINE RARE LPF (None Seen); RBC,URINE 0-1 /HPF (0-1); SQUAMOUS EPITHELIAL CELL,UR FEW /HPF (0-2); WBC,URINE 0-1 /HPF (0-1)
--- NOTE | 2024-07-23 18:50 | HMCIMG ---
PORTABLE CHEST RADIOGRAPH INDICATION: CHEST PAIN COMPARISON: None FINDINGS: Heart size is normal. The pulmonary vascularity and lito appear normal. No abnormal pulmonary parenchymal opacity or consolidation identified. Bibasilar lung linear scarring. No significant pleural effusion noted. No pneumothorax detected. Stable mid thoracic spine neurostimulator leads. IMPRESSION: No radiographic evidence for any acute cardiopulmonary process.
--- NOTE | 2024-07-23 18:50 | HMCIMG ---
CT HEAD WITHOUT CONTRAST INDICATION: Hypertensive urgency TECHNIQUE: Noncontrast axial helical CT images from the vertex through the skull base using 5 mm slice thickness without contrast material. CT was performed with one or more of the following dose reduction techniques: Automated exposure control, adjustment of the mA and/or kV according to patient size, or use of iterative reconstruction technique. COMPARISON: None FINDINGS: The cerebral and cerebellar hemispheres are age-appropriate in appearance. No evidence for abnormal extra-axial fluid collections or masses. The ventricles and sulci are normal in size and configuration. No evidence for intracranial parenchymal, epidural, or subdural hemorrhage, mass effect or midline shift. The castro-white matter differentiation is well preserved. No secondary evidence to suggest acute ischemia. Mild calcific plaque is present along the crump of the cavernous segments of both internal carotid arteries. The brainstem and cerebellum appear normal. The visualized orbits appear unremarkable. The visible paranasal sinuses and mastoid air cells are clear. The calvarium appears normal. IMPRESSION: No acute intracranial process identified.
--- NOTE | 2024-07-23 18:50 | EKG ---
[facility] Test Date: 2024-07-23 Test Time: 18:43:31 Pat Name: MANNY TORRES Department: ED[facility] Room: Gender: F Director Of Epidemiology: [id number] : 1960 Requested By: ERNESTINA GOMES Order Number: [id number] Reading MD: Dom Barber Measurements Intervals [place] Rate: 84 P: 31 [place]: 163 QRS: -20 QRSD: 81 T: 47 QT: 388 QTc: 457 Interpretive Statements Sinus rhythm Compared to ECG 06/19/2024 22:57:41 Myocardial infarct finding no longer present Electronically Signed On 07-24-2024 09:58:21 WASHING TUB OPERATOR by Dom Barber Please click the below link to view image of tracing.
--- NOTE | 2024-07-23 18:53 | ERN ---
General Chief Complaint: Chest Pain Stated Complaint: CP, HEADACHE Time Seen by MD: 18:04 Time Seen by Midlevel: 18:04 Source: patient, EMS History of Present Illness Initial Comments Patient is a 63-year-old female with an extensive past medical history that includes hypertension, hyperlipidemia, anxiety, depression, and gastroparesis presenting to the emergency department with midsternal chest pain that started today at approximately 4:00 p.m.. Pain is nonradiating. Pain is rated 10/10. She also reports a frontal headache. She does report checking her blood pressure at home and received a systolic blood pressure over 200. She reports taking her BP medication prior to arrival. On arrival she does report feeling improved. Her chest pain has resolved. Initial blood pressure on arrival was 170 systolic. Patient has no other concerns at this time. Allergies: Coded Allergies: ciprofloxacin (Unverified Allergy, Unknown, 03/26/17) Home Meds Active Scripts Pantoprazole Sodium (Protonix) 40 Mg Ectab, 1 TAB PO DAILY for 30 Days, #30 TAB 0 Refills Prov:EVA QUICK MD 06/20/24 Clonidine HCl (Clonidine HCl) 0.1 Mg Tablet, 0.1 MG PO TID for 30 Days, #90 TAB 1 Refill Prov:ROBERT LEAVITT MD 11/16/23 Reported Medications Acetaminophen (Acetaminophen) 325 Mg Tablet, 325 MG PO AD PRN for PAIN, #2 TAB 11/13/23 Docusate Sodium (Stool Softener) 50 Mg Capsule, 50 MG PO DAILY PRN for CONSTIPATION, CAP 11/13/23 Folic Acid (Folvite) 1 Mg Tab, 1 MG PO DAILY, TAB 11/13/23 Cyanocobalamin (Vitamin B-12) (Vitamin B-12) 1,000 Mcg Tablet, 1000 MCG PO DAILY, TAB 11/13/23 Fenofibrate Nanocrystallized (Fenofibrate) 145 Mg Tablet, 145 MG PO DAILY, TAB 11/13/23 Pantoprazole Sodium (Pantoprazole Sodium) 40 Mg Tablet.dr, 40 MG PO DAILY, TAB 11/13/23 Levothyroxine Sodium (Levothyroxine) 112 Mcg Capsule, 112 MCG PO DAILY, CAP 11/13/23 Ondansetron HCl (Ondansetron HCl) 8 Mg Tablet, 8 MG PO TIDP MDD , TAB 11/13/23 Metoclopramide HCl (Metoclopramide HCl) 5 Mg Tablet, 5 MG PO QID, TAB 11/13/23 Metoprolol Succinate (Metoprolol Succinate) 50 Mg Tab.er.24h, 50 MG PO DAILY, TAB 11/13/23 Clonidine HCl (Clonidine HCl) 0.1 Mg Tablet, 0.1 MG PO TID, TAB 11/13/23 Topiramate (Topiramate) 100 Mg Tablet, 100 MG PO DAILY, TAB 11/13/23 Nitroglycerin (Nitroglycerin) 0.4 Mg Tab.subl, 0.4 MG SL AD PRN for CHEST PAIN, TAB.SL 11/13/23 Zolpidem Tartrate (Zolpidem Tartrate) 5 Mg Tablet, 10 MG PO HS, TAB 11/13/23 Pyridoxine HCl (Vitamin B6) (Vitamin B6) 100 Mg/2.5 Ml Liquid, 50 MG PO AD 11/13/23 Fluoxetine HCl (Prozac) 40 Mg Capsule, 40 MG PO DAILY, CAP 11/13/23 Atorvastatin Calcium (Atorvastatin Calcium) 40 Mg Tablet, 40 MG PO DAILY, TAB 11/13/23 Past Medical History Past Medical History: Anxiety, Depression, High Cholesterol, Hypertension Medical History Other: Urinary incontinence, CHRONIC BACK PAIN, GASTROPARESIS Past Surgical History: Hysterectomy, Other Surgical History Other: HX OF 3 BACK SX; THYROIDECTOMY Family History Family History: DM Social History Social History: Negative, Lives with family Female( History) History: Not Applicable ROS Dictation CONSTITUTIONAL: Negative except for HPI HEAD/FACE: Negative except for HPI EENT: Negative except for HPI RESPIRATORY: Negative except for HPI GASTROINTESTINAL/ABDOMINAL: Negative except for HPI GENITOURINARY: Negative except for HPI MUSCULOSKELETAL: Negative except for HPI INTEGUMENTARY: Negative except for HPI NEUROLOGICAL/PSYCH: Negative except for HPI HEMATOLOGIC/LYMPHATIC: Negative except for HPI All Systems Negative, Except as noted above. 13 point review of systems assessed and all negative except for above. Physical Exam Physical Exam Dictation Vital Signs reviewed General Appearance: Alert, oriented x 3, no acute distress, well developed, nourished. Head and Face: non-traumatic. Eyes: PERRL, pink conjunctivas, eyelid no trauma, anterior chamber with arcus senilis. Ears: Pinnas intact and no signs of trauma or erythema ear canals clear and no discharge TM no erythema Nose: No discharge, no bleeding. Oropharynx: Mouth normal, tongue pink, pharynx clear,no erythema, tonsils no exudates, no abscesses noted, mucous membrane moist Neck: Supple, non-tender, no thyromegaly, no masses, no JVD, no bruits Breast:Deferred Chest:No tenderness, no crepitus, no paradoxical movement, no retractions Lungs:Clear, well-ventilated, symmetric, no rales, no wheezing, no rhonchi, no stridor, good breath sounds bilaterally Heart: Regular rate, regular rhythm, no murmur, no gallops Vascular: no peripheral edema, Abdomen: Soft, positive bowel sounds, nondistended, no guarding, nontender, no rebound, no masses no hepatomegaly, no splenomegaly, no Jacobsen's sign, no hernias. Rectal: Deferred Genital: Deferred Neurological: Normal speech, motor function intact, sensory function intact Musculoskeletal: Neck nontender, full range of motion, back nontender, full range of motion, Extremities: nontender, full range of motion Skin: Color pink, dry, no turgor, no rash, no lacerations, no abrasions, no contusions. Lymphatic: Deferred Results Laboratory and Microbiology Lab and Micro Result Laboratory Tests Test 07/23/24 18:06 07/23/24 18:26 07/23/24 18:31 07/23/24 18:57 White Blood Count 10.2 K/uL (4.8-10.8) Red Blood Count 4.32 MIL/uL (4.00-5.50) Hemoglobin 14.2 g/dL (12.0-16.0) Hematocrit 43.2 % (36-48) Mean Corpuscular Volume 100.0 fL (79-99) H Mean Corpuscular Hemoglobin 32.9 pg (27.0-33.0) Mean Corpuscular Hemoglobin Concent 32.9 g/dL (32.0-36.0) Red Cell Distribution Width 14.0 % (11.0-15.5) Platelet Count 382 K/uL (130-400) Mean Platelet Volume 8.2 fL (7.5-10.5) Immature Granulocyte % (Auto) 1.1 % (0-1) H Neutrophils (%) (Auto) 71.6 % (40.0-77.0) Lymphocytes (%) (Auto) 18.3 % (21.0-51.0) L Monocytes (%) (Auto) 7.6 % (3.0-13.0) Eosinophils (%) (Auto) 1.0 % (0.0-8.0) Basophils (%) (Auto) 0.4 % (0.0-5.0) Neutrophils # (Auto) 7.3 K/uL (1.8-7.7) Lymphocytes # (Auto) 1.9 K/uL (1.0-4.8) Monocytes # (Auto) 0.8 K/uL (0.1-1.0) Eosinophils # (Auto) 0.10 K/uL (0.00-0.70) Basophils # (Auto) 0.04 K/uL (0.00-0.20) Absolute Immature Granulocyte (auto 0.11 K/uL (0-1) Nucleated Red Blood Cells 0.0 % (0.0-0.19) Sodium Level 139 mmol/L (136-145) Potassium Level 3.8 mmol/L (3.5-5.1) Chloride Level 102 mmol/L (101-111) Carbon Dioxide Level 26 mmol/L (21-32) Blood Urea Nitrogen 33 mg/dL (7-18) H Creatinine 0.9 mg/dL (0.5-1.0) Glomerular Filtration Rate Calc 73 mL/min (>90) Random Glucose 150 mg/dL (70-105) H Total Calcium 8.4 mg/dL (8.5-10.1) L Total Creatine Kinase 73 U/L (21-232) # Troponin I High Sensitivity < 4 ng/L (4-50) L B-Type Natriuretic Peptide 38 pg/mL (0-100) Urine Color LIGHT-YELLOW (YELLOW) Urine Appearance CLEAR (CLEAR) Urine pH 5.5 (5.0-8.0) Urine Specific [place] 1.028 (1.001-1.031) Urine Protein 30 mg/dL (NEGATIVE) H Urine Glucose (UA) NEGATIVE mg/dL (NEGATIVE) Urine Ketones NEGATIVE mg/dL (NEGATIVE) Urine Occult Blood +- (TRACE) (NEGATIVE) H Urine Nitrate NEGATIVE (NEGATIVE) Urine Bilirubin NEGATIVE mg/dL (NEGATIVE) Urine Urobilinogen 0.2 mg/dL (0.2-1.0) Urine Leukocyte Esterase NEGATIVE Naye/uL Urine RBC 0-1 /HPF (0-1) Urine WBC 0-1 /HPF (0-1) Urine Squamous Epithelial Cells FEW /HPF (0-2) Urine Bacteria RARE /HPF (None Seen) Urine Hyaline Casts 0-1 /LPF (0-1 /LPF) Troponin I < 0.05 ng/mL (0.00-0.05) < 0.05 ng/mL (0.00-0.05) Labs Reviewed?: Yes MDM MDM: Patient is a 63-year-old female with an extensive past medical history that includes hypertension, hyperlipidemia, anxiety, depression, and gastroparesis presenting to the emergency department with midsternal chest pain that started today at approximately 4:00 p.m.. Pain is nonradiating. Pain is rated 10/10. She also reports a frontal headache. She does report checking her blood pressure at home and received a systolic blood pressure over 200. She reports taking her BP medication prior to arrival. On arrival she does report feeling improved. Her chest pain has resolved. Initial blood pressure on arrival was 170 systolic. Patient has no other concerns at this time. On physical examination the patient is in no acute distress. Blood pressure on arrival was 173/119. Heart rate of 88 beats per minute. CBC and chemistries unremarkable. Two sets of cardiac enzymes are negative. EKG does not show any ST elevations or bundle branch blocks. Chest x-ray does not show any acute abnormality. A CT scan of the head was obtained to rule out an intracranial bleed given the fluctuation in her blood pressure. CT scan of the head does not show any intracranial bleed or any other acute intracranial abnormalities. The patient was observed in the ER for over 2 hours and has remained stable and asymptomatic. She was requesting pain medication for her chronic left foot. S he was given 15 mg of Toradol IV. Repeat blood pressure is 133/88. Patient will be discharged home with strict return precautions. Differential diagnosis: Hypertensive urgency, hypertensive emergency, dehydration, chronic pain, ACS There are no social concerns with this patient. Prescription drug management Prescriptions will include: None Medical management and examination interpretation discussions were had by me with other qualified healthcare professionals as indicated for the patient's care. ED Course Orders Procedure Category Date Status Time Vital Signs Per CPOE 07/23/24 Transmitted Routine 17:56 B-Type Natriuretic LAB 07/23/24 Complete Peptide 17:56 Chest 1vw RAD 07/23/24 Resulted 17:56 12 Lead Ekg Tracing- EKG 07/23/24 Complete Technical 17:56 Oxygen By Nc/Pulse Ox CPOE 07/23/24 Transmitted 17:56 Maintain Iv CPOE 07/23/24 Transmitted 17:56 Iv Insertion CPOE 07/23/24 Transmitted 17:56 Cardiac Monitoring CPOE 07/23/24 Transmitted 17:56 Pulse Oximetry With CPOE 07/23/24 Transmitted Vs And Prn 17:56 Cbc With Differential LAB 07/23/24 Complete 17:56 Activity: Br W/Brp CPOE 07/23/24 Transmitted With Assist 17:56 Creatine Kinase, Total LAB 07/23/24 Complete 17:56 Troponin I High LAB 07/23/24 Complete Sensitivity 17:56 Urinalysis Profile LAB 07/23/24 Complete 17:56 Troponin Poc Order LAB 07/23/24 Complete Only 17:56 Bedside Troponin-I LAB.ER 07/23/24 In Process (Poc) 17:56 Basic Metabolic Panel LAB 07/23/24 Complete 17:56 Ct Head/Brain W/O CT 07/23/24 Resulted Contrast 18:11 Ketorolac PHA 07/23/24 Complete Tromethamine 15mg/Ml 19:30 Current Medications Medications (Trade) Dose Ordered Sig/Maria Teresa Route PRN Reason Start Time Stop Time Status Last Admin Dose Admin Ketorolac Tromethamine (toRADol) 15 mg ONCE ONCE IV 07/23/24 19:30 07/23/24 19:31 DC 07/23/24 19:41 Vital Signs Date Time Temp Pulse Resp B/P (MAP) Pulse Ox O2 Delivery O2 Flow Rate FiO2 07/23/24 19:17 98.1 82 16 133/88 94 Room Air* 0 21 07/23/24 18:22 98.1 82 15 164/103 96 Room Air* 0 21 07/23/24 17:55 97.9 88 20 173/119 94 Room Air [place] [id number] [place] [id number] IMAGING REPORT Signed PATIENT: MANNY TORRES MR#: [id number] : 1960 SEX: F AGE: 63 LOCATION: [facility] ORDER 11 STATUS: REG ER REPORT#: [id number] SERVICE 10 REASON: hypertensive urgency/headache ORDERING PHYSICIAN: MARICEL BURGESS PROCEDURE: HEAD WO - CT HEAD/BRAIN W/O CONTRAST CT HEAD WITHOUT CONTRAST INDICATION: Hypertensive urgency TECHNIQUE: Noncontrast axial helical CT images from the vertex through the skull base using 5 mm slice thickness without contrast material. CT was performed with one or more of the following dose reduction techniques: Automated exposure control, adjustment of the mA and/or kV according to patient size, or use of iterative reconstruction technique. COMPARISON: None FINDINGS: The cerebral and cerebellar hemispheres are age-appropriate in appearance. No evidence for abnormal extra-axial fluid collections or masses. The ventricles and sulci are normal in size and configuration. No evidence for intracranial parenchymal, epidural, or subdural hemorrhage, mass effect or midline shift. The castro-white matter differentiation is well preserved. No secondary evidence to suggest acute ischemia. Mild calcific plaque is present along the crump of the cavernous segments of both internal carotid arteries. The brainstem and cerebellum appear normal. The visualized orbits appear unremarkable. The visible paranasal sinuses and mastoid air cells are clear. The calvarium appears normal. IMPRESSION: No acute intracranial process identified. DICTATED BY: JOSE DANIEL WAITE MD DATE: 07/23/241845 ELECTRONICALLY SIGNED BY: JOSE DANIEL WAITE MD DATE: 07/23/241849 [place] [address] IMAGING REPORT Signed PATIENT: MANNY TORRES MR#: [id number] : 1960 SEX: F AGE: 63 LOCATION: [facility] ORDER 56 STATUS: REG ER REPORT#: [id number] SERVICE 55 REASON: CHEST PAIN ORDERING PHYSICIAN: ERNESTINA SUTHERLAND MD PROCEDURE: CXR1VW - CHEST 1VW PORTABLE CHEST RADIOGRAPH INDICATION: CHEST PAIN COMPARISON: None FINDINGS: Heart size is normal. The pulmonary vascularity and lito appear normal. No abnormal pulmonary parenchymal opacity or consolidation identified. Bibasilar lung linear scarring. No significant pleural effusion noted. No pneumothorax detected. Stable mid thoracic spine neurostimulator leads. IMPRESSION: No radiographic evidence for any acute cardiopulmonary process. DICTATED BY: JOSE DANIEL WAITE MD DATE: 07/23/241845 ELECTRONICALLY SIGNED BY: JOSE DANIEL WAITE MD DATE: 07/23/24 185 DX & DISP Disposition: Discharge Departure Impression: Primary Impression: Non-cardiac chest pain Additional Impression: Elevated blood pressure reading Condition: Stable Additional Instructions: Your blood work today is unremarkable. Your cardiac enzymes are negative. Your EKG does not show any evidence of a heart attack. Your CT scan of the brain does not show any acute intracranial abnormality. Your blood pressure was controlled in the emergency department. You will need to follow up with your primary care doctor for further evaluation. Return to the ER for any new or worsening symptoms. Referrals: MIKE SRINIVASAN MD (PCP) Time of Disposition: 19:49 I have reviewed the case, and I agree with, Diagnosis and Plan I performed the substantive portion of the visit. I have reviewed and personally made and approve the management plan that is documented in the note by myself or the PANCHO. I acknowledge for responsibility for the patient's management plan. MARICEL BURGESS Jul 23, 2024 18:53
--- NOTE | 2024-07-23 19:10 | NUR ---
PT CARE ASSUMED AT THIS TIME
[2024-07-23 19:17] VITALS: TEMP 98
[2024-07-23] MEDS: ketOROlac 15MG/ML VIAL (15MG/ML) IV ONE (19:41)
[2024-07-23 19:59] VITALS: BP 129/82; PULSE 80; RESP 17; O2SAT 98
== END 2024-07-23 20:03 | disposition home or self-care (01) ==
LOC: EDH 17:54
DX: R07.89 Other chest pain (principal); I10 Essential (primary) hypertension; F41.9 Anxiety disorder, unspecified; F32.A Depression, unspecified; E78.00 Pure hypercholesterolemia, unspecified; K31.84 Gastroparesis; Z79.890 Hormone replacement therapy; Z79.899 Other long term (current) drug therapy; Z88.1 Allergy status to other antibiotic agents; Z90.710 Acquired absence of both cervix and uterus
CPT/HCPCS: 99285; 96374; 70450; 71045; 82550; 84484 ×2; 80048; 83880; 85025; 81001; 36415; 93005; J1885

== ENCOUNTER 2024-07-31 19:30 | Emergency (ER) | payer OTHER, MEDICARE ==
[~2024-07-31] VITALS: Ht 154.9 cm; Wt 68.5 kg
--- NOTE | 2024-07-31 19:52 | ERN ---
General Chief Complaint: Abdominal Pain Stated Complaint: C/O ABD PAIN, W/ N X V X DIARRHEA, MULTIPLE COMPLA Time Seen by MD: 19:33 Source: patient History of Present Illness Initial Comments Patient comes in with complaint of nausea vomiting and diarrhea. Started at 5:00 a.m. this morning. She has thrown up about 10 times and had 10 episodes of just frankly watery diarrhea. No sick contacts. No URI symptoms. No travel. Has hypertension high cholesterol. Having chills. Patient does have crampy a bdominal pain that is causing the the relief diarrhea abdominal. Patient also has chronic foot pain for which she takes tramadol. Allergies: Coded Allergies: ciprofloxacin (Unverified Allergy, Unknown, 03/26/17) Home Meds Active Scripts Pantoprazole Sodium (Protonix) 40 Mg Ectab, 1 TAB PO DAILY for 30 Days, #30 TAB 0 Refills Prov:EVA QUICK MD 06/20/24 Clonidine HCl (Clonidine HCl) 0.1 Mg Tablet, 0.1 MG PO TID for 30 Days, #90 TAB 1 Refill Prov:ROBERT LEAVITT MD 11/16/23 Reported Medications Acetaminophen (Acetaminophen) 325 Mg Tablet, 325 MG PO AD PRN for PAIN, #2 TAB 11/13/23 Docusate Sodium (Stool Softener) 50 Mg Capsule, 50 MG PO DAILY PRN for CONSTIPATION, CAP 11/13/23 Folic Acid (Folvite) 1 Mg Tab, 1 MG PO DAILY, TAB 11/13/23 Cyanocobalamin (Vitamin B-12) (Vitamin B-12) 1,000 Mcg Tablet, 1000 MCG PO DAILY, TAB 11/13/23 Fenofibrate Nanocrystallized (Fenofibrate) 145 Mg Tablet, 145 MG PO DAILY, TAB 11/13/23 Pantoprazole Sodium (Pantoprazole Sodium) 40 Mg Tablet.dr, 40 MG PO DAILY, TAB 11/13/23 Levothyroxine Sodium (Levothyroxine) 112 Mcg Capsule, 112 MCG PO DAILY, CAP 11/13/23 Ondansetron HCl (Ondansetron HCl) 8 Mg Tablet, 8 MG PO TIDP MDD 24, TAB 11/13/23 Metoclopramide HCl (Metoclopramide HCl) 5 Mg Tablet, 5 MG PO QID, TAB 11/13/23 Metoprolol Succinate (Metoprolol Succinate) 50 Mg Tab.er.24h, 50 MG PO DAILY, TAB 11/13/23 Clonidine HCl (Clonidine HCl) 0.1 Mg Tablet, 0.1 MG PO TID, TAB 11/13/23 Topiramate (Topiramate) 100 Mg Tablet, 100 MG PO DAILY, TAB 11/13/23 Nitroglycerin (Nitroglycerin) 0.4 Mg Tab.subl, 0.4 MG SL AD PRN for CHEST PAIN, TAB.SL 11/13/23 Zolpidem Tartrate (Zolpidem Tartrate) 5 Mg Tablet, 10 MG PO HS, TAB 11/13/23 Pyridoxine HCl (Vitamin B6) (Vitamin B6) 100 Mg/2.5 Ml Liquid, 50 MG PO AD 11/13/23 Fluoxetine HCl (Prozac) 40 Mg Capsule, 40 MG PO DAILY, CAP 11/13/23 Atorvastatin Calcium (Atorvastatin Calcium) 40 Mg Tablet, 40 MG PO DAILY, TAB 11/13/23 Past Medical History Past Medical History: Diabetes-Type II, High Cholesterol, Hypertension, Migraines Medical History Other: Urinary incontinence, CHRONIC BACK PAIN, GASTROPARESIS Past Surgical History: None Surgical History Other: HX OF 3 BACK SX; THYROIDECTOMY Family History Family History: DM Social History Social History: Negative, Lives with family Female( History) History: Not Applicable ROS Dictation Ten systems reviewed and negative except as noted in HPI Physical Exam Physical Exam Dictation GEN: non toxic, NAD HEENT: atrumatic, PERRL, EOMI, conjunctivae normal NECK: Soft supple nontender Heart regular but tachycardic, no murmurs Chest: No deformity Lungs: Lungs clear to auscultation Ab: Soft nondistended nontender Back: No midline step-offs. No gross deformity. No CVA tenderness : m/s: Moving all four extremities. No gross deformity. Left foot area of patient's chronic pain is unremarkable in appearance on exam. No erythema or swelling or deformity. Neuro: CN 2-12 intact. Moving all four extremities. Psych: Cooperative Results Laboratory and Microbiology Lab and Micro Result Laboratory Tests Test 07/31/24 20:12 07/31/24 22:20 White Blood Count 17.5 K/uL (4.8-10.8) H Red Blood Count 4.79 MIL/uL (4.00-5.50) Hemoglobin 15.6 g/dL (12.0-16.0) Hematocrit 47.9 % (36-48) Mean Corpuscular Volume 100.0 fL (79-99) H Mean Corpuscular Hemoglobin 32.6 pg (27.0-33.0) Mean Corpuscular Hemoglobin Concent 32.6 g/dL (32.0-36.0) Red Cell Distribution Width 14.6 % (11.0-15.5) Platelet Count 457 K/uL (130-400) H Mean Platelet Volume 8.2 fL (7.5-10.5) Immature Granulocyte % (Auto) 0.5 % (0-1) Neutrophils (%) (Auto) 81.0 % (40.0-77.0) H Lymphocytes (%) (Auto) 9.4 % (21.0-51.0) L Monocytes (%) (Auto) 8.8 % (3.0-13.0) Eosinophils (%) (Auto) 0.0 % (0.0-8.0) Basophils (%) (Auto) 0.3 % (0.0-5.0) Neutrophils # (Auto) 14.2 K/uL (1.8-7.7) H Lymphocytes # (Auto) 1.7 K/uL (1.0-4.8) Monocytes # (Auto) 1.6 K/uL (0.1-1.0) H Eosinophils # (Auto) 0.00 K/uL (0.00-0.70) Basophils # (Auto) 0.05 K/uL (0.00-0.20) Absolute Immature Granulocyte (auto 0.09 K/uL (0-1) Nucleated Red Blood Cells 0.0 % (0.0-0.19) White Cell Morphology Comment See comments Sodium Level 140 mmol/L (136-145) Potassium Level 3.8 mmol/L (3.5-5.1) Chloride Level 101 mmol/L (101-111) Carbon Dioxide Level 25 mmol/L (21-32) Blood Urea Nitrogen 25 mg/dL (7-18) H Creatinine 1.1 mg/dL (0.5-1.0) H Glomerular Filtration Rate Calc 57 mL/min (>90) Random Glucose 118 mg/dL (70-105) H Total Calcium 9.5 mg/dL (8.5-10.1) Lipase 56 U/L (16-77) Urine Color YELLOW (YELLOW) Urine Appearance CLOUDY (CLEAR) H Urine pH 6.0 (5.0-8.0) Urine Specific [place] 1.020 (1.001-1.031) Urine Protein 100 mg/dL (NEGATIVE) H Urine Glucose (UA) NEGATIVE mg/dL (NEGATIVE) Urine Ketones 5 mg/dL (NEGATIVE) H Urine Occult Blood SMALL (NEGATIVE) H Urine Nitrate NEGATIVE (NEGATIVE) Urine Bilirubin NEGATIVE mg/dL (NEGATIVE) Urine Urobilinogen 0.2 mg/dL (0.2-1.0) Urine Leukocyte Esterase 25 Naye/uL (NEGATIVE) H Urine RBC 2-5 /HPF (0-1) H Urine WBC 11-25 /HPF (0-1) H Urine Squamous Epithelial Cells FEW /HPF (0-2) Urine Bacteria FEW /HPF (None Seen) Influenza Type A Antigen Negative For Type A Influenza Type B Antigen Negative For Type B SARS-CoV-2 Antigen (Rapid) PRESUMPTIVE NEGATIVE Labs Reviewed?: Yes EKG/XRAY/US/CT/MRI CT Scan Comment CT ABDOMEN/PELVIS W/O CONTRAST HISTORY: Abdominal pain2 COMPARISON: None TECHNIQUE: Multiple sequential axial images of the abdomen and pelvis were obtained from the dome of the diaphragm through symphysis pubis. Patient was not given contrast through intravenous route. Oral contrast was not given. FINDINGS: No pleural effusion is seen bilaterally. There are mild interstitial fibrosis. Bibasilar linear atelectasis changes are seen. Liver is enlarged measuring 18 cm. There is no evidence of parenchymal disease or pulmonary nodule of the visualized lower lungs. Degenerative changes of the thoracolumbar spine are present. The heart is not enlarged. A small hiatal hernia is seen. There is diverticulosis. There is fluid-filled small bowel loops may be related to enteritis. The liver, spleen, adrenal glands and pancreas are unremarkable. There is no evidence of hydronephrosis bilaterally. No evidence of renal stone is seen. Left renal artery stent is seen. Fecal material is seen in the colon. There are normal size retroperitoneal and mesenteric lymph nodes. No ascites is seen. Atherosclerotic changes are present. Orthopedic fixation plates and screws are seen traversing the L3 and L4 levels with disc fusions are seen at L3-4, L4-5 and L5-S1 levels Pelvic sidewalls are symmetric bilaterally. Bladder is well distended without wall thickening. IMPRESSION: 1. There is diverticulosis. There is fluid-filled small bowel loops may be related to enteritis. CT was performed with one or more following dose reduction techniques: automated exposure control, adjustment of the mA and kv according to patient's size, or use of a iterative reconstruction technique. DICTATED BY: ERIK ECHEVARRIA MD DATE: 08/01/2455 ELECTRONICALLY SIGNED BY: ERIK ECHEVARRIA MD DATE: 08/01/24 0102 MDM Multiple differentials considered although this is likely an infectious gastroenteritis. Mildly tachycardic. We will get fluids and Zofran. Check labs. Patient does have an elevated white count. Belly exam is soft benign. They believe this is likely viral gastroenteritis. IV fluids and Zofran here. Tylenol for chronic foot pain. Patient given 2 L of normal saline. We will do CT abdomen pelvis. CT abdomen and pelvis reviewed. Has some enteritis. Continue supportive care. DC on Zofran. ED Course Orders Procedure Category Date Status Time Vital Signs Per CPOE 07/31/24 Transmitted Routine 19:40 Saline Lock Iv CPOE 07/31/24 Transmitted 19:40 Cbc With Differential LAB 07/31/24 Complete 19:40 Lipase LAB 07/31/24 Complete 19:40 Urinalysis Profile LAB 07/31/24 Complete 19:40 Basic Metabolic Panel LAB 07/31/24 Complete 19:40 Ondansetron 4mg Inj PHA 07/31/24 Complete (Zofran 4mg Inj) 20:00 0.9%Nacl 1000ml (Ns PHA 07/31/24 Complete 1000ml) 20:00 Influenza Type A & B, LAB 07/31/24 Complete Rapid 19:46 Covid19 (Sars Antigen LAB 07/31/24 Complete Rapid) 19:46 0.9%Nacl 1000ml (Ns PHA 07/31/24 Complete 1000ml) 22:30 Culture Urine KEN 07/31/24 In Process 23:02 Acetaminophen 500mg PHA 08/01/24 Complete Tab (Tylenol 500mg T 00:00 Ct Abdomen/Pelvis W/O CT 08/01/24 Resulted Contrast 00:27 Current Medications Medications (Trade) Dose Ordered Sig/Maria Teresa Route PRN Reason Start Time Stop Time Status Last Admin Dose Admin Acetaminophen (TYLenol 500MG TAB) 500 mg ONCE ONCE PO 08/01/24 00:00 08/01/24 00:01 DC 08/01/24 00:18 Ondansetron HCl (zoFRAN 4MG INJ) 4 mg ONCE ONCE IVP 07/31/24 20:00 07/31/24 20:01 DC 07/31/24 20:00 Sodium Chloride 1,000 ml @ 999 mls/hr Q1H1M IV 07/31/24 20:00 07/31/24 23:17 DC 07/31/24 20:00 Sodium Chloride 1,000 ml @ 999 mls/hr Q1H1M IV 07/31/24 22:30 07/31/24 23:36 DC 07/31/24 22:38 Vital Signs Date Time Temp Pulse Resp B/P (MAP) Pulse Ox O2 Delivery O2 Flow Rate FiO2 07/31/24 19:34 99.3 129 20 163/117 97 Room Air DX & DISP Disposition: Discharge Departure Impression: Primary Impression: Diarrhea Additional Impression: Nausea & vomiting Condition: Stable Scripts Ondansetron (Ondansetron Odt) 4 Mg Tab.rapdis 1 TAB PO Q6HPRN PRN for nausea/vomiting for 4 Days, #16 TAB 0 Refills Prov: JENI ROBERSON MD 08/01/24 Additional Instructions: Zofran as needed for nausea and vomiting Imodium [id number] as needed for severe diarrhea Drink plenty fluids, such as Pedialyte Return for any worsening symptoms, inability to tolerate oral intake or any other concerns Referrals: MIKE SRINIVASAN MD (PCP) JENI ROBERSON MD Jul 31, 2024 19:52
[2024-07-31] MEDS: ondanSETRON 4MG INJ IVP ONE (20:00)
[2024-07-31] MEDS: 0.9%NACL 1000ML 1,000 ML IV SCH ×2 (20:00→22:38)
[2024-07-31 20:20] LABS: BASOPHILS # (AUTO) 0.05 K/uL (0.00-0.20); BASOPHILS % (AUTO) 0.3 % (0.0-5.0); HEMATOCRIT 47.9 % (36-48); IMMATURE GRANULOCYTE ABSOLUTE 0.09 K/uL (0-1); LYMPHOCYTES # (AUTO) 1.7 K/uL (1.0-4.8); LYMPHOCYTES % (AUTO) 9.4 % (21.0-51.0); MEAN CORPUSCULAR HEMOGLOBIN 32.6 pg (27.0-33.0); MEAN CORPUSCULAR HGB CONC 32.6 g/dL (32.0-36.0); MONOCYTES # (AUTO) 1.6 K/uL (0.1-1.0); MONOCYTES % (AUTO) 8.8 % (3.0-13.0); NEUTROPHILS # (AUTO) 14.2 K/uL (1.8-7.7); PLATELET COUNT (AUTO) 457 K/uL (130-400); RED BLOOD CELL COUNT(AUTO) 4.79 MIL/uL (4.00-5.50); RED CELL DISTRIBUTION WIDTH 14.6 % (11.0-15.5); WHITE BLOOD COUNT (AUTO) 17.5 K/uL (4.8-10.8)
[2024-07-31 20:32] LABS: CREATININE 1.1 mg/dL (0.5-1.0); POTASSIUM 3.8 mmol/L (3.5-5.1)
[2024-07-31 22:49] LABS: ADD UA MICROSCOPIC YES; APPEARANCE,URINE CLOUDY (CLEAR); BILIRUBIN,URINE NEGATIVE (NEGATIVE); COLOR,URINE YELLOW (YELLOW); GLUCOSE, URINE (UA) NEGATIVE (NEGATIVE); KETONES,URINE 5 mg/dL (NEGATIVE); LEUKOCYTE ESTERASE ,URINE 25 Leu/uL (NEGATIVE); NITRATE,URINE NEGATIVE (NEGATIVE); OCCULT BLOOD,URINE SMALL (NEGATIVE); PROTEIN,URINE 100 mg/dL (NEGATIVE); UROBILINOGEN,URINE 0.2 mg/dL (0.2-1.0)
[2024-07-31 23:00] LABS: BACTERIA,URINE FEW /HPF (None Seen); MUCUS,URINE FEW LPF (None Seen); SQUAMOUS EPITHELIAL CELL,UR FEW /HPF (0-2)
[2024-07-31 23:13] LABS: COVID19 (SARS ANTIGEN RAPID) PRESUMPTIVE NEGATIVE (NEGATIVE); INFLUENZA TYPE A Negative For Type A (NEGATIVE); INFLUENZA TYPE B Negative For Type B (NEGATIVE)
[2024-08-01] MEDS: acetaMINOPHEN 500 MG TABLET PO ONE (00:18)
--- NOTE | 2024-08-01 01:02 | HMCIMG ---
CT ABDOMEN/PELVIS W/O CONTRAST HISTORY: Abdominal pain2 COMPARISON: None TECHNIQUE: Multiple sequential axial images of the abdomen and pelvis were obtained from the dome of the diaphragm through symphysis pubis. Patient was not given contrast through intravenous route. Oral contrast was not given. FINDINGS: No pleural effusion is seen bilaterally. There are mild interstitial fibrosis. Bibasilar linear atelectasis changes are seen. Liver is enlarged measuring 18 cm. There is no evidence of parenchymal disease or pulmonary nodule of the visualized lower lungs. Degenerative changes of the thoracolumbar spine are present. The heart is not enlarged. A small hiatal hernia is seen. There is diverticulosis. There is fluid-filled small bowel loops may be related to enteritis. The liver, spleen, adrenal glands and pancreas are unremarkable. There is no evidence of hydronephrosis bilaterally. No evidence of renal stone is seen. Left renal artery stent is seen. Fecal material is seen in the colon. There are normal size retroperitoneal and mesenteric lymph nodes. No ascites is seen. Atherosclerotic changes are present. Orthopedic fixation plates and screws are seen traversing the L3 and L4 levels with disc fusions are seen at L3-4, L4-5 and L5-S1 levels Pelvic sidewalls are symmetric bilaterally. Bladder is well distended without wall thickening. IMPRESSION: 1. There is diverticulosis. There is fluid-filled small bowel loops may be related to enteritis. CT was performed with one or more following dose reduction techniques: automated exposure control, adjustment of the mA and kv according to patient's size, or use of a iterative reconstruction technique.
[2024-08-01] MEDS ORDERED: ONDA-243 PO (01:24)
[2024-08-01 01:42] VITALS: BP 129/65; PULSE 87; RESP 15; TEMP 97.4; O2SAT 100
== END 2024-08-01 01:46 | disposition home or self-care (01) ==
LOC: EDH 19:30
DX: R19.7 Diarrhea, unspecified (principal); R11.2 Nausea with vomiting, unspecified; E11.9 Type 2 diabetes mellitus without complications; E78.00 Pure hypercholesterolemia, unspecified; I10 Essential (primary) hypertension; K31.84 Gastroparesis; Z79.890 Hormone replacement therapy; Z79.899 Other long term (current) drug therapy; Z83.3 Family history of diabetes mellitus; Z88.1 Allergy status to other antibiotic agents; Z90.89 Acquired absence of other organs; Z20.822 Contact with and (suspected) exposure to COVID-19
CPT/HCPCS: 99285; 96374; 96361; 87426; 80048; 83690; 85025; 87086; 87804 ×2; 81001; 36415; 74176; J7030; J2405

== ENCOUNTER → 2024-09-19 | Outpatient (CLI) | payer OTHER, MEDICARE ==
[~2024-09-19] MED LIST changes: -LEVO112C4 PO; +LEVO112C5 PO; +ONDA-243 PO; +TOPI-258 PO; -TOPI100T37 PO
[2024-09-19 12:22] LABS: CREATININE 1.2 mg/dL (0.5-1.0); POTASSIUM 3.9 mmol/L (3.5-5.1)
== END | disposition home or self-care (01) ==
LOC: LAB 10:58
PROVIDERS: ATTEND Nurse Practitioner Acute Care
DX: I10 Essential (primary) hypertension (principal)
CPT/HCPCS: 36415; 80048; 83835

== ENCOUNTER → 2024-09-22 | Outpatient (CLI) | payer OTHER, MEDICARE ==
--- NOTE | 2024-09-22 15:09 | HMCIMG ---
US RENAL SONOGRAM HISTORY: Flank pain COMPARISON: None TECHNIQUE: Renal and bladder ultrasound study was performed. FINDINGS: The right kidney measures 10.2 x 4.5 x 3.6 cm. The left kidney measures 9.5 x 3.9 x 4.1 cm. No evidence of hydronephrosis is seen of either kidney. Both kidneys are seen. Bladder is moderately distended. Prevoid bladder volume is 53 cc. Postvoid bladder volume is 10 cc. Bladder wall measures 3 mm.. IMPRESSION: 1. No hydronephrosis is seen.
== END | disposition home or self-care (01) ==
LOC: RAH 11:06
PROVIDERS: ATTEND Internal Medicine
DX: R39.9 Unspecified symptoms and signs involving the genitourinary system (principal); N32.89 Other specified disorders of bladder
CPT/HCPCS: 76770; 76857

== ENCOUNTER 2024-10-16 07:07 | Emergency (ER) | payer OTHER, MEDICAID ==
[~2024-10-16] VITALS: Ht 154.9 cm; Wt 65.3 kg
--- NOTE | 2024-10-16 07:36 | ERN ---
General Chief Complaint: Nausea,Vomiting,Diarrhea Stated Complaint: NAUSEA, VOMITING AND DIARRHEA Time Seen by MD: 07:08 Source: patient History of Present Illness Initial Comments PATIENT IS A 63-YEAR-OLD FEMALE COMING IN TO BE EVALUATED FOR NAUSEOUSNESS VOMITING DIARRHEA. PER PATIENT THESE SYMPTOMS BEGAN YESTERDAY SHE ALSO STATES THAT SHE HAS A HISTORY OF GASTROPARESIS AND BELIEVES THAT THIS MIGHT BE HAS BEEN UP. NO FEVER OR CHILLS. Allergies: Coded Allergies: ciprofloxacin (Unverified Allergy, Unknown, 03/26/17) Home Meds Active Scripts Ondansetron (Ondansetron Odt) 4 Mg Tab.rapdis, 1 TAB PO Q6HPRN PRN for nausea/vomiting for 4 Days, #16 TAB 0 Refills Prov:JENI ROBERSON MD 08/01/24 Pantoprazole Sodium (Protonix) 40 Mg Ectab, 1 TAB PO DAILY for 30 Days, #30 TAB 0 Refills Prov:EVA QUICK MD 06/20/24 Clonidine HCl (Clonidine HCl) 0.1 Mg Tablet, 0.1 MG PO TID for 30 Days, #90 TAB 1 Refill Prov:ROBERT LEAVITT MD 11/16/23 Reported Medications Acetaminophen (Acetaminophen) 325 Mg Tablet, 325 MG PO AD PRN for PAIN, #2 TAB 11/13/23 Docusate Sodium (Stool Softener) 50 Mg Capsule, 50 MG PO DAILY PRN for CONSTIPATION, CAP 11/13/23 Folic Acid (Folvite) 1 Mg Tab, 1 MG PO DAILY, TAB 11/13/23 Cyanocobalamin (Vitamin B-12) (Vitamin B-12) 1,000 Mcg Tablet, 1000 MCG PO DAILY, TAB 11/13/23 Fenofibrate Nanocrystallized (Fenofibrate) 145 Mg Tablet, 145 MG PO DAILY, TAB 11/13/23 Pantoprazole Sodium (Pantoprazole Sodium) 40 Mg Tablet.dr, 40 MG PO DAILY, TAB 11/13/23 Levothyroxine Sodium (Levothyroxine) 112 Mcg Capsule, 112 MCG PO DAILY, CAP 11/13/23 Ondansetron HCl (Ondansetron HCl) 8 Mg Tablet, 8 MG PO TIDP MDD 24, TAB 11/13/23 Metoclopramide HCl (Metoclopramide HCl) 5 Mg Tablet, 5 MG PO QID, TAB 11/13/23 Metoprolol Succinate (Metoprolol Succinate) 50 Mg Tab.er.24h, 50 MG PO DAILY, TAB 11/13/23 Clonidine HCl (Clonidine HCl) 0.1 Mg Tablet, 0.1 MG PO TID, TAB 11/13/23 Topiramate (Topiramate) 100 Mg Tablet, 100 MG PO DAILY, TAB 11/13/23 Nitroglycerin (Nitroglycerin) 0.4 Mg Tab.subl, 0.4 MG SL AD PRN for CHEST PAIN, TAB.SL 11/13/23 Zolpidem Tartrate (Zolpidem Tartrate) 5 Mg Tablet, 10 MG PO HS, TAB 11/13/23 Pyridoxine HCl (Vitamin B6) (Vitamin B6) 100 Mg/2.5 Ml Liquid, 50 MG PO AD 11/13/23 Fluoxetine HCl (Prozac) 40 Mg Capsule, 40 MG PO DAILY, CAP 11/13/23 Atorvastatin Calcium (Atorvastatin Calcium) 40 Mg Tablet, 40 MG PO DAILY, TAB 11/13/23 Past Medical History Past Medical History: Heart Disease, Hypertension Medical History Other: THYROID PROBLEM Past Surgical History: Hysterectomy Surgical History Other: THYROID REMOVAL, BACK SURGERY WITH STIMULATOR Family History Family History: DM Social History Social History: Negative, Lives with family Female( History) History: Not Applicable ROS Dictation CONSTITUTIONAL: NO CHILLS, NO FEVER, NO WEAKNESS, NO DIAPHORESIS, NO MALAISE. HEAD/FACE: NO SIGNS OF TRAUMA. EENT: NO EYE PAIN, NO BLURRED VISION, NO TEARING, NO DOUBLE VISION, NO EAR PAIN, NO EAR DISCHARGE, NO NOSE PAIN, NO NASAL CONGESTION, NO THROAT PAIN, NO THROAT SWELLING, NO MOUTH PAIN. RESPIRATORY: NO COUGH, NO ORTHOPNEA, NO SOB, NO STRIDOR, NO WHEEZING. CARDIOVASCULAR: NO CHEST PAIN, NO EDEMA, NO PALPITATIONS, NO SYNCOPE. GASTROINTESTINAL/ABDOMINAL: NO ABDOMINAL PAIN, NO CONSTIPATION, NO DIARRHEA, NAUSEA, VOMITING. GENITOURINARY: NO ABNORMAL DISCHARGE, NO DYSURIA, NO FREQUENT URINATION, NO HEMATURIA. NO COMPLAINTS OF PAIN IN THE GENITALS. MUSCULOSKELETAL: NO BACK PAIN, NO GOUT, NO JOINT PAIN, NO JOINT SWELLING, NO MUSCLE PAIN, NO MUSCLE STIFFNESS, NO NECK PAIN. INTEGUMENTARY: NO CHANGE IN COLOR, NO CHANGE IN HAIR/NAILS, NO DRYNESS, NO LESION, NO LUMPS, NO RASH. NEUROLOGICAL/PSYCH: NO ANXIETY, NOT DEPRESSED, NO EMOTIONAL PROBLEM, NO HEADACHE, NO NUMBNESS, NO PRE-EXISTING DEFICIT, NO HISTORY OF SEIZURES, NO TREMORS, NO WEAKNESS. HEMATOLOGIC/LYMPHATIC: NOT ANEMIC, NO HISTORY OF BLOOD CLOTS, NO APPARENT BLEEDING, NO BRUISING, GLANDS NOT SWOLLEN. ALL SYSTEMS NEGATIVE, EXCEPT NOTED. Physical Exam Physical Exam Dictation VITAL SIGNS: REVIEWED. GENERAL APPEARANCE: ALERT, ORIENTED X3, NO ACUTE DISTRESS, OBESE. HEAD AND FACE: NON-TRAUMATIC. EYES: PERRL, PINK CONJUNCTIVAS, EYELID NO TRAUMA, ANTERIOR CHAMBER CLEAR. EARS: PINNAS INTACT AND NO SIGNS OF TRAUMA OR ERYTHEMA. EAR CANALS CLEAR AND NO DISCHARGE. TMS NO ERYTHEMA. NOSE: NO DISCHARGE, NO BLEEDING. OROPHARYNX: MOUTH NORMAL, TEETH NO CARIES, TONGUE PINK. PHARYNX CLEAR, NO ERYTHEMA. TONSILS NO EXUDATES, NO ABSCESSES NOTED. MUCOUS MEMBRANE MOIST. NECK: SUPPLE, NON-TENDER, NO THYROMEGALY, NO MASSES, NO JVD, NO BRUITS. BREAST: DEFERRED. CHEST: NO TENDERNESS, NO CREPITUS, NO PARADOXICAL MOVEMENT, NO RETRACTIONS. LUNGS: CLEAR, WELL-VENTILATED, SYMMETRIC, NO RALES, NO WHEEZING, NO RHONCHI, NO STRIDOR, GOOD BREATH SOUNDS BILATERALLY. HEART: REGULAR RATE, REGULAR RHYTHM, NO MURMUR, NO GALLOPS. VASCULAR: NO PERIPHERAL EDEMA. ABDOMEN: SOFT, POSITIVE BOWEL SOUNDS, NONDISTENDED, NO GUARDING, NONTENDER, NO REBOUND, NO MASSES NO HEPATOMEGALY, NO SPLENOMEGALY, NO HORNER'S SIGN, NO HERNIAS. RECTAL: DEFERRED. GENITAL: DEFERRED. NEUROLOGICAL: NORMAL SPEECH, GROSS MOTOR FUNCTION INTACT, GROSS SENSORY FUNCTION INTACT. MUSCULOSKELETAL: NECK NONTENDER, FULL RANGE OF MOTION, BACK NONTENDER, FULL RANGE OF MOTION. EXTREMITIES: NONTENDER, FULL RANGE OF MOTION. SKIN: COLOR PINK, DRY, NO TURGOR, NO RASH, NO LACERATIONS, NO ABRASIONS, NO CONTUSIONS. LYMPHATICS: DEFERRED. Results Laboratory and Microbiology Lab and Micro Result Laboratory Tests Test 10/16/24 07:44 10/16/24 09:02 White Blood Count 8.9 K/uL (4.8-10.8) Red Blood Count 4.53 MIL/uL (4.00-5.50) Hemoglobin 14.8 g/dL (12.0-16.0) Hematocrit 44.0 % (36-48) Mean Corpuscular Volume 97.1 fL (79-99) Mean Corpuscular Hemoglobin 32.7 pg (27.0-33.0) Mean Corpuscular Hemoglobin Concent 33.6 g/dL (32.0-36.0) Red Cell Distribution Width 13.7 % (11.0-15.5) Platelet Count 375 K/uL (130-400) Mean Platelet Volume 8.8 fL (7.5-10.5) Immature Granulocyte % (Auto) 0.5 % (0-1) Neutrophils (%) (Auto) 69.9 % (40.0-77.0) Lymphocytes (%) (Auto) 20.1 % (21.0-51.0) L Monocytes (%) (Auto) 7.0 % (3.0-13.0) Eosinophils (%) (Auto) 1.8 % (0.0-8.0) Basophils (%) (Auto) 0.7 % (0.0-5.0) Neutrophils # (Auto) 6.2 K/uL (1.8-7.7) Lymphocytes # (Auto) 1.8 K/uL (1.0-4.8) Monocytes # (Auto) 0.6 K/uL (0.1-1.0) Eosinophils # (Auto) 0.16 K/uL (0.00-0.70) Basophils # (Auto) 0.06 K/uL (0.00-0.20) Absolute Immature Granulocyte (auto 0.04 K/uL (0-1) Nucleated Red Blood Cells 0.0 % (0.0-0.19) Sodium Level 141 mmol/L (136-145) Potassium Level 3.3 mmol/L (3.5-5.1) L Chloride Level 106 mmol/L (101-111) Carbon Dioxide Level 26 mmol/L (21-32) Blood Urea Nitrogen 9 mg/dL (7-18) Creatinine 0.9 mg/dL (0.5-1.0) Glomerular Filtration Rate Calc 73 mL/min (>90) Random Glucose 102 mg/dL (70-105) Total Calcium 9.1 mg/dL (8.5-10.1) Total Bilirubin 0.2 mg/dL (0.2-1.0) Aspartate Amino Transf (AST/SGOT) 20 U/L (10-37) Alanine Aminotransferase (ALT/SGPT) 27 U/L (12-78) Alkaline Phosphatase 81 U/L (50-136) Total Creatine Kinase 80 U/L (21-232) Troponin I High Sensitivity 6 ng/L (4-50) Total Protein 7.5 g/dL (6.0-8.3) Albumin 4.0 g/dL (3.5-5.0) Lipase 30 U/L (16-77) Urine Color YELLOW (YELLOW) Urine Appearance CLEAR (CLEAR) Urine pH 6.0 (5.0-8.0) Urine Specific Vinson 1.020 (1.001-1.031) Urine Protein NEGATIVE mg/dL (NEGATIVE) Urine Glucose (UA) NEGATIVE mg/dL (NEGATIVE) Urine Ketones NEGATIVE mg/dL (NEGATIVE) Urine Occult Blood NEGATIVE (NEGATIVE) Urine Nitrate POSITIVE (NEGATIVE) H Urine Bilirubin NEGATIVE mg/dL (NEGATIVE) Urine Urobilinogen 0.2 mg/dL (0.2-1.0) Urine Leukocyte Esterase SMALL Naye/uL (NEGATIVE) H Urine RBC 0-1 /HPF (0-1) Urine WBC 2-5 /HPF (0-1) H Urine Squamous Epithelial Cells Few /HPF (0-2) Urine Bacteria Moderate /HPF (None Seen) H Labs Reviewed?: Yes EKG/XRAY/US/CT/MRI EKG Comment 10/16/2024 TIME 7:31 A.M. VENTRICULAR RATE 99 SINUS RHYTHM [place] [address] WAVE ELEVATION OR DEPRESSION MDM MDM: DIFFERENTIAL DIAGNOSIS: GASTROENTERITIS, GASTROPARESIS, RATIONALE: TESTS CONSIDERED AND ORDERED SECONDARY TO SHARED DECISION MAKING INCLUDE: PREVIOUS OUTSIDE RECORDS REVIEWED: OLD ER VISITS. RISK OF COMPLICATION AND/OR MORBIDITY OR MORTALITY OF PATIENT MANAGEMENT: NONE MEDICATIONS-PER MEDICATION RECONCILIATION NEED FOR HOSPITALIZATION: PATIENT DOES NOT MEET CRITERIA FOR HOSPITALIZATION. PATIENT IS A 63-YEAR-OLD FEMALE COMING IN TO BE EVALUATED FOR NAUSEA AND VOMITING. PATIENT STATES THAT SHE HAS A CHRONIC HISTORY OF GASTROPARESIS AND FREQUENTLY PRESENTS WITH A THESE EPISODES. ON PHYSICAL EXAM THERE IS NO TENDERNESS IN THE ABDOMINAL CAVITY. PATIENT WAS HYDRATED WITH IV FLUIDS GIVEN SOME ANTIEMETICS STATES HE FEELS MUCH BETTER. WE WILL BE DISCHARGED IN STABLE CONDITION. I DID ADVISED HER APPROPRIATE FOLLOW UP WITH PCP IN 1-2 DAYS. HE WILL BE PROVIDED SYMPTOMATIC MEDICATION. I ALSO ADVISED HER DIET MODIFICATION UNTIL SYMPTOMS HAVE RESOLVED. ED Course Orders Procedure Category Date Status Time Cbc With Differential LAB 10/16/24 Complete 07:14 Comprehensive LAB 10/16/24 Complete Metabolic Panel 07:14 Troponin I High LAB 10/16/24 Complete Sensitivity 07:14 Urinalysis Profile LAB 10/16/24 Complete 07:14 12 Lead Ekg Tracing- EKG 10/16/24 Logged Technical 07:14 Lactated Ringers PHA 10/16/24 Complete 1000ml (Lactated 07:30 Ondansetron 4mg Inj PHA 10/16/24 Complete (Zofran 4mg Inj) 07:30 Pantoprazole 40mg Inj PHA 10/16/24 Complete (Protonix 40mg Inj 07:30 Creatine Kinase, Total LAB 10/16/24 Complete 07:14 Lipase LAB 10/16/24 Complete 07:14 Metoclopramide 10 PHA 10/16/24 Complete Mg/2 Ml Vial (Reglan 1 08:00 Potassium Bicarb/Cit PHA 10/16/24 Complete Ac 25meq (K-Lyte Ta 09:30 Culture Urine KEN 10/16/24 In Process 09:24 Current Medications Medications (Trade) Dose Ordered Sig/Maria Teresa Route PRN Reason Start Time Stop Time Status Last Admin Dose Admin Lactated Ringer's 1,000 ml @ 0 mls/hr ONCE ONCE IV 10/16/24 07:30 10/16/24 07:31 DC 10/16/24 07:49 Metoclopramide HCl (regLAN 10MG IV) 5 mg ONCE ONCE IVP 10/16/24 08:00 10/16/24 08:01 DC 10/16/24 07:50 Ondansetron HCl (zoFRAN 4MG INJ) 4 mg ONCE ONCE IVP 10/16/24 07:30 10/16/24 07:31 DC 10/16/24 07:50 Pantoprazole Sodium (PROTonix 40MG INJ) 40 mg ONCE ONCE IVP 10/16/24 07:30 10/16/24 07:31 DC 10/16/24 07:49 Potassium Bicarbonate (K-Lyte Tablet Eff 25 Meq Tablet.eff) 25 meq ONCE ONCE PO 10/16/24 09:30 10/16/24 09:32 DC 10/16/24 10:11 Vital Signs Date Time Temp Pulse Resp B/P (MAP) Pulse Ox O2 Delivery O2 Flow Rate FiO2 10/16/24 10:00 162/104 Room Air* 0 10/16/24 09:43 98.4 92 18 165/105 98 Room Air* 0 21 10/16/24 08:01 98.4 102 18 176/115 94 Room Air* 0 21 10/16/24 07:08 97.9 112 16 183/128 97 Room Air 0 DX & DISP Disposition: Discharge Departure Impression: Primary Impression: Acute gastroenteritis Additional Impression: Gastroparesis Condition: Stable Scripts Pantoprazole Sodium (Protonix) 40 Mg Ectab 1 TAB PO DAILY for 30 Days, #30 TAB 0 Refills Prov: EVA QUICK MD 10/16/24 Metoclopramide HCl (Metoclopramide HCl) 5 Mg Tablet 1 TAB PO BID for 5 Days, #7 TAB 0 Refills Prov: EVA QUICK MD 10/16/24 Additional Instructions: FOLLOW-UP WITH PRIMARY CARE PROVIDER IN 1 TO 2 DAYS. TAKE MEDICATIONS DIRECTED HERE IN THE EMERGENCY ROOM. OKAY TO CONTINUE HOME MEDICATIONS UNLESS OTHERWISE DISCUSSED DURING YOUR VISIT IN THE EMERGENCY ROOM TODAY. RETURN TO YOUR NEAREST EMERGENCY ROOM IF SYMPTOMS WORSEN OR IF THERE IS NO IMPROVEMENT. CALL 911 IF YOU NEED IMMEDIATE ASSISTANCE. TAKE TYLENOL IELN-AAT-MYCNOIH NEEDED AND IF NO CONTRAINDICATIONS ARE PRESENT. INCREASE ORAL HYDRATION. A WOUND CULTURE OR URINE CULTURE WAS ORDERED HERE IN THE EMERGENCY ROOM DEPARTMENT PLEASE FOLLOW-UP WITH PRIMARY CARE PROVIDER AND ADVISE THEM TO GET REPEAT PORTS FROM OUR FACILITY. IF YOU HAD ANY TREVER WRAP/SPLINTS THAT WERE APPLIED HERE, PLEASE DO NOT REMOVE THEM UNTIL YOU SEE YOUR PRIMARY CARE OR SPECIALTY. REFERRALS: Referrals: MIKE SRINIVASAN MD (PCP) Time of Disposition: 11:52 EVA QUICK MD October 16, 2024 07:36
[2024-10-16] MEDS: LACTATED RINGERS 1000ML 1,000 ML IV ONE (07:49)
[2024-10-16] MEDS: PANTOPrazole 40 MG/VIAL IVP ONE (07:49)
[2024-10-16] MEDS: ondanSETRON 4MG INJ IVP ONE (07:50)
[2024-10-16] MEDS: metoCLOPRAmide 10 MG/2 ML VIAL IVP ONE (07:50)
[2024-10-16 07:57] LABS: BASOPHILS # (AUTO) 0.06 K/uL (0.00-0.20); BASOPHILS % (AUTO) 0.7 % (0.0-5.0); EOSINOPHILS # (AUTO) 0.16 K/uL (0.00-0.70); EOSINOPHILS % (AUTO) 1.8 % (0.0-8.0); IMMATURE GRANULOCYTE ABSOLUTE 0.04 K/uL (0-1); LYMPHOCYTES # (AUTO) 1.8 K/uL (1.0-4.8); LYMPHOCYTES % (AUTO) 20.1 % (21.0-51.0); MEAN CORPUSCULAR HEMOGLOBIN 32.7 pg (27.0-33.0); MEAN CORPUSCULAR HGB CONC 33.6 g/dL (32.0-36.0); MEAN CORPUSCULAR VOLUME 97.1 fL (79-99); MONOCYTES # (AUTO) 0.6 K/uL (0.1-1.0); NEUTROPHILS # (AUTO) 6.2 K/uL (1.8-7.7); NEUTROPHILS % (AUTO) 69.9 % (40.0-77.0); PLATELET COUNT (AUTO) 375 K/uL (130-400); RED BLOOD CELL COUNT(AUTO) 4.53 MIL/uL (4.00-5.50); RED CELL DISTRIBUTION WIDTH 13.7 % (11.0-15.5); WHITE BLOOD COUNT (AUTO) 8.9 K/uL (4.8-10.8)
[2024-10-16 08:28] LABS: BILIRUBIN,TOTAL 0.2 mg/dL (0.2-1.0); CREATININE 0.9 mg/dL (0.5-1.0); POTASSIUM 3.3 mmol/L (3.5-5.1); TOTAL PROTEIN, SERUM 7.5 g/dL (6.0-8.3)
[2024-10-16 09:12] LABS: APPEARANCE,URINE CLEAR (CLEAR); BILIRUBIN,URINE NEGATIVE (NEGATIVE); COLOR,URINE YELLOW (YELLOW); GLUCOSE, URINE (UA) NEGATIVE (NEGATIVE); KETONES,URINE NEGATIVE (NEGATIVE); LEUKOCYTE ESTERASE ,URINE SMALL Leu/uL (NEGATIVE); NITRATE,URINE POSITIVE (NEGATIVE); OCCULT BLOOD,URINE NEGATIVE (NEGATIVE); PROTEIN,URINE NEGATIVE (NEGATIVE); UROBILINOGEN,URINE 0.2 mg/dL (0.2-1.0)
[2024-10-16 09:20] LABS: ADD UA MICROSCOPIC YES
[2024-10-16 09:26] LABS: BACTERIA,URINE Moderate /HPF (None Seen); RBC,URINE 0-1 /HPF (0-1); SQUAMOUS EPITHELIAL CELL,UR Few /HPF (0-2)
[2024-10-16] MEDS: PoTASSium BIcarbonate/CIT AC 25 MEQ TABLET.EFF PO ONE (10:11)
[2024-10-16] MEDS ORDERED: METO5TAB2 PO (11:53)
[2024-10-16] MEDS: cloNIDine HCL 0.1 MG TABLET PO ONE (12:24)
[2024-10-16 13:29] VITALS: BP 170/104; PULSE 89; RESP 18; TEMP 98; O2SAT 95
--- NOTE | 2024-10-16 13:38 | NUR ---
PATIENT ALERT AND ORIENTED, BEING DISCHARGED HOME. PRESCRITIONS GIVEN, MEDICATIONS EXPLAINED, INCLUDING SIDE EFFECTS. PATIENT EDUCATED TO RESUME HOME MEDS INDICATED BY MD. EDUCATED TO FOLLOW UP WITH PCP 1-2 DAYS. FAMILY PENDING TO COME PROGRAM CONTROL ANALYST PATIENT. PATIENT HIGH RISK FOR FALL WILL BE WAITING FOR FAMILY IN THE ROOM.
--- NOTE | 2024-10-16 14:04 | NUR ---
PT AAOX4, MEDICALLY CLEARED BY DR. QUICK, PT STABLE NO DISTRESS, VITALS WNL NO C/O PAIN PT GIVEN INSTRUCTIONS FOR HOME, PT HAS DAUGHTER PICKING HER UP, PT TAKEN OUT IN W/C STATES SHE WILL WAIT FOR HER DAUGHTER IN ED LOBBY IN WHEEL CHAIR. SECURITY WATCHING PT WHILE DAUGHTER ARRIVES FROM [place].
--- NOTE | 2024-10-17 08:03 | EKG ---
[facility] Test Date: 2024-10-16 Test Time: 07:31:51 Pat Name: MANNY TORRES Department: [facility] Room: Gender: F Coordinator Cardiopulmonary Services: [id number] : 1960 Requested By: EVA QUICK Order Number: [id number] Reading MD: Lance Banda Measurements Intervals [place] Rate: 99 P: 46 AK: 206 QRS: -54 QRSD: 83 T: 37 QT: 364 QTc: 467 Interpretive Statements Sinus rhythm LAD, consider left anterior fascicular block Compared to ECG 07/23/2024 18:43:31 No significant changes RSR' IN V1 OR V2, PROBABLY NORMAL VARIANT Electronically Signed On 10-17-2024 12:47:51 CDT by Lance Banda Please click the below link to view image of tracing.
--- NOTE | 2024-10-18 10:06 | NUR ---
UPON REVIEW OF CULTURE RESULTS BY DR. MATOS, RX FOR MACROBID 100MG BID X 7 DAYS NEEDED. CALLED PHONE NUMBER ON FILE, NO ANSWER. UNABLE TO LEAVE VOICEMAIL.
== END 2024-10-16 13:36 | disposition home or self-care (01) ==
LOC: EDH 07:07
DX: K52.9 Noninfective gastroenteritis and colitis, unspecified (principal); K31.84 Gastroparesis; I10 Essential (primary) hypertension; Z79.890 Hormone replacement therapy; Z79.899 Other long term (current) drug therapy; Z83.3 Family history of diabetes mellitus; Z88.1 Allergy status to other antibiotic agents; Z90.710 Acquired absence of both cervix and uterus
CPT/HCPCS: 99285; 96374; 96375; 82550; 84484; 80053; 83690; 85025; 87086 ×2; 87186; 81001; 36415; 93005; J2405; J2470; J2765